=== PATIENT | female | born 1965 | race Caucasian/White ===

== ENCOUNTER → 2019-02-26 11:35 | Outpatient (CLI) | payer OTHER, SELFPAY ==
--- NOTE | ~2019-02-26 | XR_ITS ---
XR abdomen/kub 1V 02/26/2019 12:02 INDICATION: Abdominal pain TECHNIQUE: KUB COMPARISON: 07/27/2003 FINDINGS: Bowel gas pattern is normal. There is no evidence of free air, mass, organomegaly, ascites or obstruction. No abnormal calculi are seen. The bones appear intact. There are mild degenerative changes of the lumbar spine and hips. IMPRESSION: 1: No acute abdominal abnormality identified. Reviewed, dictated and finalized at location B. S ASSEMBLER
== END ==
PROVIDERS: PCP Family Medicine; Visit Provider Nurse Practitioner Family
DX: R10.9 Unspecified abdominal pain (principal)
CPT/HCPCS: 74018

== ENCOUNTER 2019-03-13 16:10 | Outpatient (CLI) | payer OTHER, SELFPAY ==
--- NOTE | ~2019-03-13 | CT_ITS ---
EXAMINATION: CT abdomen wo con DATE: 03/13/2019 16:42 INDICATION: Abdomen pain. TECHNIQUE: Computed tomography (CT) of the abdomen and pelvis was performed without intravenous contr ast. The dose-length product was 836.17 mGy-cm. Automated exposure control and iterative reconstructi on technique were employed. COMPARISON: CT dated 07/26/2013 FINDINGS: Lung bases unremarkable. Heart size normal. No significant pleural or pericardial effusion. No significant vascular abnormality. No lymphadenopathy. Fatty infiltration of the liver. There are gallstones. The spleen, pancreas, adrenal glands and kidne ys are unremarkable. Normal partially visualized appendix. Fat-containing umbilical hernia partially visualized. No free air or free fluid. Mild lumbar spondylosis. IMPRESSION: 1. Cholelithiasis. 2: Fatty infiltration of the liver. Reviewed, dictated and finalized at location A. PRINTER
[2019-03-13 17:33] LABS: Blood Urea Nitrogen 14 mg/dL (7-17); Calcium 9.9 mg/dL (8.4-10.2); Carbon Dioxide 28 mmol/L (22-30); Chloride 98 mmol/L (98-107); Estimated Glomerular Filt Rate > 60; Glucose 106 mg/dL (65-105); Potassium 3.9 mmol/L (3.4-5.0); Sodium 138 mmol/L (137-145)
== END 2019-03-13 16:11 | disposition home or self-care (01) ==
PROVIDERS: PCP Family Medicine; Visit Provider Nurse Practitioner Family
DX: K80.20 Calculus of gallbladder without cholecystitis without obstruction (principal); K76.0 Fatty (change of) liver, not elsewhere classified
CPT/HCPCS: 36415; 74150; 80048

== ENCOUNTER 2020-01-14 08:32 | Outpatient (CLI) | payer OTHER, SELFPAY ==
--- NOTE | ~2020-01-14 | MM_ITS ---
EXAMINATION: MM screening eddi BI w ssuan HISTORY: Screening mammogram TECHNIQUE: Craniocaudal and mediolateral oblique 3-D tomosynthesis images were obtained and synthetic 2-D images were generated. CAD analysis was submitted and interpreted. COMPARISON: 08/01/2015, 04/24/2011 bilateral digital screening mammogram examinations BREAST PARENCHYMAL COMPOSITION: There are scattered areas of fibroglandular density. FINDINGS: There is no evidence of suspicious mass, calcification, or architectural distortion to sugg est malignancy in either breast. There has been no suspicious interval change. IMPRESSION: 1. No mammographic evidence of malignancy. 2. Recommend routine screening mammography in one year. BI-RADS Category 1: Negative Reviewed, dictated and finalized at location A. CHDOWN THREAD LASTER
== END 2020-01-14 08:33 | disposition home or self-care (01) ==
PROVIDERS: PCP Family Medicine; Visit Provider Obstetrics & Gynecology
DX: Z12.31 Encounter for screening mammogram for malignant neoplasm of breast (principal)
CPT/HCPCS: 77063; 77067

== ENCOUNTER 2020-02-19 08:39 | Outpatient (CLI) | payer OTHER, SELFPAY ==
[2020-02-19 09:25] LABS: Anion Gap 9 mmol/L (8-16); Blood Urea Nitrogen 14 mg/dL (7-17); Calcium 9.3 mg/dL (8.4-10.2); Carbon Dioxide 30 mmol/L (22-30); Chloride 101 mmol/L (98-107); Cholesterol 239 mg/dL (0-200); Estimated Glomerular Filt Rate > 60; Glucose 114 mg/dL (65-105); HDL Direct 54 mg/dL; Potassium 4.2 mmol/L (3.4-5.0); Sodium 140 mmol/L (137-145); Triglycerides 100 mg/dL (<150)
[2020-02-19 09:39] LABS: LDL Cholesterol Direct 167 mg/dL
== END 2020-02-19 08:40 | disposition home or self-care (01) ==
PROVIDERS: PCP Family Medicine; Visit Provider Nurse Practitioner Family
DX: F32.9 Major depressive disorder, single episode, unspecified (principal)
CPT/HCPCS: 36415; 80048; 80061; 84443

== ENCOUNTER 2020-07-01 12:37 | Emergency (ER) | payer OTHER, SELFPAY ==
--- NOTE | ~2020-07-01 | XR_ITS ---
EXAMINATION: XR knee RT min 4V DATE: 07/01/2020 13:07 INDICATION: Right knee injury and pain. TECHNIQUE: 5 views of right knee were obtained. COMPARISON: None. FINDINGS: Bone alignment is normal. No fracture. There is moderate osteoarthritis of medial compartme nt and mild osteoarthritis of lateral and patellofemoral compartments. There is a small knee joint ef fusion with loose body. There is a loose body in a Markham's cyst. IMPRESSION: 1. Moderate right knee osteoarthritis. 2. Small right knee joint effusion with loose body. Reviewed, dictated and finalized at location A.
--- NOTE | 2020-07-01 12:43 | ED.LOWEXIN ---
HPI - Extremity Injury (Lower) General Chief Complaint: Extremity Injury, Lower Stated Complaint: right knee pain Time Seen by Provider: 07/01/20 12:43 Source: patient and RN notes reviewed Mode of arrival: ambulatory Limitations: no limitations History of Present Illness HPI Narrative: 54-year-old female presents to the [facility] with complaints of right knee pain and swelling. patient states that she has had intermittent pain and swelling for over a year. Patient reports that she had a with with twisting injury in March 2019. When she went to get looked at in April all appointments were canceled due to Covid. Comes in with increased pain and swelling to the medial aspect of right knee and lower right knee. Has tried OTC medications with little relief. Related Data Allergies Allergy/AdvReac Type Severity Reaction Status Date / Time No Known Allergies Allergy Unknown Verified 07/01/20 12:43 Review of Systems Review of Systems: All systems reviewed & are unremarkable except as noted in HPI and below Constitutional: Constitutional: Reports no additional constitutional complaints, Denies chills, Denies fatigue, Denies fever(s) and Denies weakness Cardiovascular: Cardiovascular: Reports no additional cardiovascular complaints Respiratory: Respiratory: Reports no additional respiratory complaints Musculoskeletal: Musculoskeletal: Reports as per HPI, Reports arthralgias (right knee) and Reports joint swelling (right knee) Integumentary/Breasts: Skin/Breast: Reports system reviewed and no additional complaints, except as docu Neurologic: Reports system reviewed and no additional complaints, except as documented, Denies dizziness, Denies focal weakness, Denies numbness and Denies weakness Psychiatric: Psychiatric: Reports no additional psychiatric complaints Endocrine: Endocrine: Reports no additional endocrine complaints [facility] Past Medical History Medical History Bone spur of foot Depression Osteoarthritis of spine Surgical History Surgical History H/O: hysterectomy Family History Family History Mother Diabetes mellitus Sibling Hypertension Diabetes mellitus Unknown Diabetes mellitus Family history of malignant neoplasm of ovary Social History Social History Smoking status: Never smoker Alcohol intake: current Substance use: never Gender identity (if verbalized by the patient): Female Comments At the time of my signature, I reviewed and agree with the nursing past medical, surgical, social, and family history. There is no relevant family history pertinent to the patient complaint. Exam Const: General: healthy appearing, no acute distress and alert Nutritional Appearance: obese Limitations: no limitations HENMT: Head: normal to inspection Eyes: Pupils: Equal, round and reactive pupils present Neck: Neck: normal visual inspection Chest: Chest palpation & inspection: normal inspection of the chest Resp: Effort & Inspection: normal respiratory effort and no use of accessory muscles Auscultation: clear to auscultation bilaterally Cardio: Rate: regular rate : General: Yes no CVA tenderness Skin: General skin exam: normal color Rashes: no rashes Neuro: General: patient oriented x3, moves all extremities and no meningeal signs Speech: normal speech Extrem: Right lower extremity: full ROM, normal capillary refill and knee Details: tenderness Location: of the medial joint line, swelling (Effusion noted to the medial aspect) and knee ligament exam normal; no abrasions, no lacerations and no ecchymosis; no edema Psych: Appearance: grossly normal and well kempt Mental Status: mental status grossly normal Affect: normal affect Attitude: cooperative Thought content: Yes Normal thought
[2020-07-01 13:00] VITALS: BP 144/82; PULSE 83; RESP 20; TEMP 36.4; O2SAT 98
== END 2020-07-01 13:36 | disposition home or self-care (01) ==
PROVIDERS: Emergency Provider Nurse Practitioner; PCP Family Medicine
DX: M25.461 Effusion, right knee (principal); M17.11 Unilateral primary osteoarthritis, right knee; F32.9 Major depressive disorder, single episode, unspecified; M47.9 Spondylosis, unspecified
CPT/HCPCS: 73564; 99213; G0463

== ENCOUNTER 2020-09-16 03:17 | Day surgery (SDC) | payer OTHER, SELFPAY ==
[2020-09-02 13:46] VITALS: BMI 19.5
--- NOTE | 2020-09-16 08:26 | WPDANESEPPF ---
Anes - Initial Pre Proc Eval Procedure: Operation Date: 09/16/20 10:00 Proposed Procedures p Colonoscopy - Barry Lozano MD Date/Time: 09/16/20 08:26 Surgeon: Barry Lozano MD Pre Op Diagnosis: positive cologuard Patient Data Age: 54 Gender: F Height: 1.68 m Weight: 55 kg Allergies Allergy/AdvReac Type Severity Reaction Status Date / Time No Known Allergies Allergy Unknown Verified 09/16/20 09:26 Home Medications Medication Instructions Recorded Confirmed Type oxybutynin chloride 5 mg tablet 5 mg PO BID #180 tablet 06/14/20 09/02/20 Rx lamotrigine 100 mg tablet 100 mg PO DAILY #90 tablet 06/16/20 09/02/20 Rx sertraline 100 mg tablet 100 mg PO DAILY #90 tablet 06/16/20 09/02/20 Rx Patient hx anesthesia problems: none Family hx anesthesia problems: none PMFSH Past Medical History Medical History (Updated 09/16/20 @ 08:27 by Saurav Reese MD) Bipolar 1 disorder Bone spur of foot Depression Morbid obesity Osteoarthritis of spine Surgical History Surgical History H/O: hysterectomy Family History Family History Mother Diabetes mellitus Sibling Hypertension Diabetes mellitus Unknown Diabetes mellitus Family history of malignant neoplasm of ovary Social History Social History Smoking status: Never smoker Alcohol intake: never Substance use: never Substance use type: does not use Living arrangements: with family Gender identity (if verbalized by the patient): Female Spiritual care concerns: No Anes - Eval Final PreProcedure Day of Procedure 09/16/20 08:26 Patient weight: morbidly obese Heart: regular rate and rhythm Lungs: clear to auscultation and normal air movement Airway: Mallampati scale class II Neurological: alert and oriented Last oral intake: >/= 8 hours ASA classification: III Emergent: no Anesthetic plan: proceed Anesthesia type and monitoring: general GIVS Informed Consent: The patient's anesthetic plan and its attendant risks and benefits were discussed with the patient/family/POA. Questions were solicited and answers provided to the satisfaction of the patient/family/POA.
[2020-09-16] MEDS: LACTATED RINGERS 1,000 ML 150 ML IV CONT (09:24)
[2020-09-16 09:27] VITALS: BP 179/85; PULSE 79; RESP 22; TEMP 36.2; O2SAT 98; BMI 43.2
--- NOTE | 2020-09-16 09:42 | PM.HPGS ---
History of Present Illness History of Present Illness Consent: Risks, benefits, and alternatives have been discussed and questions answered. Patient agrees to proceed with procedure. Chief complaint: positive cologuard Narrative: Deyanira Mckeon is a 54 year old female referred for colon cancer screening. She performed a cold guard test that was positive Review of Systems Review of Systems: All systems reviewed & are unremarkable except as noted in HPI and below PMFSH Past Medical History Medical History Bipolar 1 disorder Bone spur of foot Depression Morbid obesity Osteoarthritis of spine Surgical History Surgical History H/O: hysterectomy Family History Family History Mother Diabetes mellitus Sibling Hypertension Diabetes mellitus Unknown Diabetes mellitus Family history of malignant neoplasm of ovary Social History Social History Smoking status: Never smoker Alcohol intake: never Substance use: never Substance use type: does not use Living arrangements: with family Gender identity (if verbalized by the patient): Female Spiritual care concerns: No Meds Home Medications and Allergies Home Medications Medication Instructions Recorded Confirmed Type oxybutynin chloride 5 mg tablet 5 mg PO BID #180 tablet 06/14/20 09/02/20 Rx lamotrigine 100 mg tablet 100 mg PO DAILY #90 tablet 06/16/20 09/02/20 Rx sertraline 100 mg tablet 100 mg PO DAILY #90 tablet 06/16/20 09/02/20 Rx Allergies Allergy/AdvReac Type Severity Reaction Status Date / Time No Known Allergies Allergy Unknown Verified 09/16/20 09:26 Vital Signs Vital Signs - 24 hr 09/16/20 09:27 Temperature 36.2 C L Pulse Rate 79 Respiratory Rate 22 H Blood Pressure 179/85 H Pulse Oximetry 98 Exam Resp: Auscultation: clear to auscultation bilaterally Cardio: Rate: regular rate Rhythm: regular rhythm GI: GI Palp: Yes Soft to palpation and No Tenderness to palpation present (GI) Assessment and Plan Assessment and plan (1) Positive colorectal cancer screening using Cologuard test: Code(s): R19.5 - Other fecal abnormalities Status: Acute Assessment and Plan: Colonoscopy with possible biopsy or polypectomy or cautery or injection of substances.
[2020-09-16 10:37] VITALS: BP 109/65; PULSE 66; RESP 17; O2SAT 94
[2020-09-16 10:47] VITALS: BP 126/68; PULSE 62; RESP 15; O2SAT 96
[2020-09-16 10:57] VITALS: BP 130/70; PULSE 65; RESP 17; O2SAT 98
== END 2020-09-16 11:09 | disposition home or self-care (01) ==
PROVIDERS: PCP Family Medicine; Visit Provider Internal Medicine Gastroenterology
PROC: 0DJD8ZZ Inspection of Lower Intestinal Tract, Via Natural or Artificial Opening Endoscopic (ICD-10-PCS; CPT 45378; principal; 2020-09-16 10:00)
DX: R19.5 Other fecal abnormalities (principal); D12.5 Benign neoplasm of sigmoid colon; K62.1 Rectal polyp; K57.30 Diverticulosis of large intestine without perforation or abscess without bleeding; K64.8 Other hemorrhoids; E66.01 Morbid (severe) obesity due to excess calories; M47.9 Spondylosis, unspecified; F31.9 Bipolar disorder, unspecified; Z90.710 Acquired absence of both cervix and uterus
CPT/HCPCS: 45385; 88305; J2001; J2704; J7120

== ENCOUNTER 2021-08-09 10:06 | Outpatient (CLI) | payer OTHER, SELFPAY ==
[2021-08-09 20:32] LABS: Hematocrit 43.9 % (37.0-47.0); Hemoglobin 13.4 g/dL (12.0-15.0); Mean Corpuscular HGB Conc 30.5 g/dl (32-36); Mean Corpuscular Hemoglobin 28.9 pg (26-34); Mean Corpuscular Volume 94.8 fl (80-100); Mean Platelet Volume 10.7 fl (7.4-10.4); Platelet Count Result 266 k/mm3 (150-375); Red Blood Count 4.63 M/mm3 (4.2-5.4); Red Cell Distribution Width 14.4 % (11.5-14.5); White Blood Count 7.5 K/mm3 (4.5-10.0)
[2021-08-09 20:49] LABS: Alanine Aminotransferase 21 U/L (6-35); Albumin Level 4.8 g/dL (3.5-5.1); Alkaline Phosphatase 104 U/L (38-126); Anion Gap 9 mmol/L (8-16); Aspartate Amino Transferase 22 U/L (14-36); Bilirubin,Total 0.5 mg/dL (0.2-1.3); Blood Urea Nitrogen 15 mg/dL (7-17); Calcium 9.4 mg/dL (8.4-10.2); Carbon Dioxide 27 mmol/L (22-30); Chloride 104 mmol/L (98-107); Cholesterol 290 mg/dL (0-200); Estimated Glomerular Filt Rate > 60; Glucose 107 mg/dL (65-110); HDL Direct 54 mg/dL; Potassium 4.4 mmol/L (3.4-5.0); Sodium 140 mmol/L (137-145); Triglycerides 133 mg/dL (<150)
[2021-08-09 20:54] LABS: Hemoglobin A1C 5.9 % (<5.7)
[2021-08-09 21:01] LABS: LDL Cholesterol Direct 189 mg/dL
[2021-08-11 10:10] LABS: Amphetamines NEGATIVE ng/mL (<500); Barbiturates NEGATIVE ng/mL (<300); Benzodiazepines NEGATIVE ng/mL (<100); Cocaine Metabolite NEGATIVE ng/mL (<100); Marijuana Metabolite NEGATIVE ng/mL (<20); Methadone Metabolite NEGATIVE ng/mL (<100); Opiates NEGATIVE ng/mL (<100); Oxidant NEGATIVE mcg/mL (<200); pH 7.2 (4.5-9.0)
== END 2021-08-09 10:07 | disposition home or self-care (01) ==
LOC: ANHBWCLAB 10:07
PROVIDERS: PCP Family Medicine; Visit Provider Family Medicine
DX: Z00.00 Encounter for general adult medical examination without abnormal findings (principal); E66.01 Morbid (severe) obesity due to excess calories; F98.8 Other specified behavioral and emotional disorders with onset usually occurring in childhood and adolescence; M25.561 Pain in right knee
CPT/HCPCS: 36415; 80053; 80061; 80299; 83036; 84443; 85027

== ENCOUNTER 2021-12-26 08:05 | Outpatient (CLI) | payer OTHER, SELFPAY ==
[2021-12-26 19:43] LABS: Hemoglobin A1C 6.1 % (<5.7)
== END 2021-12-26 08:06 | disposition home or self-care (01) ==
LOC: ANHBWCLAB 08:06
PROVIDERS: PCP Family Medicine; Visit Provider Family Medicine
DX: R73.03 Prediabetes (principal)
CPT/HCPCS: 36415; 83036

== ENCOUNTER 2022-04-25 14:34 | Outpatient (CLI) | payer OTHER, SELFPAY ==
--- NOTE | ~2022-04-25 | MM_ITS ---
EXAMINATION: MM screening eddi BI w susan HISTORY: Screening mammogram TECHNIQUE: Craniocaudal and mediolateral oblique 3-D tomosynthesis images were obtained and synthetic 2-D images were generated. CAD analysis was submitted and interpreted. COMPARISON: 01/14/2020, 08/01/2015 bilateral screening mammogram examinations BREAST PARENCHYMAL COMPOSITION: There are scattered areas of fibroglandular density. FINDINGS: There is no evidence of suspicious mass, calcification, or architectural distortion to sugg est malignancy in either breast. There has been no suspicious interval change. IMPRESSION: 1. No mammographic evidence of malignancy. 2. Recommend routine screening mammography in one year. BI-RADS Category 1: Negative Reviewed, dictated and finalized at location A.
== END 2022-04-25 14:35 | disposition home or self-care (01) ==
LOC: ANHIMG 14:36
PROVIDERS: PCP Family Medicine; Visit Provider Family Medicine
DX: Z12.31 Encounter for screening mammogram for malignant neoplasm of breast (principal)
CPT/HCPCS: 77063; 77067

== ENCOUNTER 2022-08-20 08:39 | Outpatient (CLI) | payer OTHER, SELFPAY ==
[2022-08-20 18:37] LABS: Hematocrit 42.7 % (37.0-47.0); Mean Corpuscular HGB Conc 30.4 g/dl (32-36); Mean Corpuscular Hemoglobin 29.7 pg (26-34); Mean Corpuscular Volume 97.7 fl (80-100); Mean Platelet Volume 10.7 fl (7.4-10.4); Platelet Count Result 218 k/mm3 (150-375); Red Blood Count 4.37 M/mm3 (4.2-5.4); Red Cell Distribution Width 13.4 % (11.5-14.5); White Blood Count 5.3 K/mm3 (4.5-10.0)
[2022-08-20 19:21] LABS: Alanine Aminotransferase 22 U/L (6-35); Albumin Level 4.5 g/dL (3.5-5.1); Alkaline Phosphatase 70 U/L (38-126); Anion Gap 3 mmol/L (8-16); Aspartate Amino Transferase 53 U/L (14-36); Bilirubin,Total 0.6 mg/dL (0.2-1.3); Blood Urea Nitrogen 18 mg/dL (7-17); Calcium 9.7 mg/dL (8.4-10.2); Carbon Dioxide 32 mmol/L (22-30); Chloride 103 mmol/L (98-107); Cholesterol 268 mg/dL (0-200); Estimated Glomerular Filt Rate > 60; Glucose 84 mg/dL (65-110); HDL Direct 52 mg/dL; Potassium 4.5 mmol/L (3.4-5.0); Sodium 138 mmol/L (137-145); Triglycerides 86 mg/dL (<150)
[2022-08-20 19:32] LABS: LDL Cholesterol Direct 167 mg/dL
[2022-08-20 19:45] LABS: Hemoglobin A1C 5.7 % (<5.7)
== END 2022-08-20 08:40 | disposition home or self-care (01) ==
LOC: ANHBWCLAB 08:41
PROVIDERS: PCP Family Medicine; Visit Provider Family Medicine
DX: E66.01 Morbid (severe) obesity due to excess calories (principal); F32.9 Major depressive disorder, single episode, unspecified; F98.8 Other specified behavioral and emotional disorders with onset usually occurring in childhood and adolescence; G47.30 Sleep apnea, unspecified; K80.20 Calculus of gallbladder without cholecystitis without obstruction; M25.561 Pain in right knee; N32.81 Overactive bladder; R03.0 Elevated blood-pressure reading, without diagnosis of hypertension; R19.5 Other fecal abnormalities; R73.03 Prediabetes; R73.09 Other abnormal glucose; Z00.00 Encounter for general adult medical examination without abnormal findings; Z83.49 Family history of other endocrine, nutritional and metabolic diseases; I10 Essential (primary) hypertension
CPT/HCPCS: 36415; 80053; 80061; 83036; 85027

== ENCOUNTER 2022-11-28 07:56 | Outpatient (CLI) | payer OTHER, SELFPAY ==
--- NOTE | ~2022-11-28 | MR_ITS ---
EXAMINATION: MR brain/brain stem wo/w con DATE: 11/28/2022 09:38 INDICATION: Central retinal vein occlusion with macular degeneration. Right eye vision loss. TECHNIQUE: Magnetic resonance imaging (MRI) of the brain and brainstem was performed without and with 19 mL MultiHance intravenous contrast. COMPARISON: None. FINDINGS: There are scattered areas of nonspecific increased T2-weighted signal intensity in the cere bral white matter, which is within normal limits for the patient's age. There is no intracranial hemo rrhage, acute infarction, or abnormal intracranial mass lesion. The ventricles are normal in size. Th e paranasal sinuses are clear. The orbits are normal. The mastoid air cells are normal. IMPRESSION: 1. Normal aging brain. Reviewed, dictated and finalized at location E. IMPRESSION: 1. Normal aging brain.
--- NOTE | ~2022-11-28 | MR_ITS ---
EXAMINATION: MR orbits face neck wo/w con DATE: 11/28/2022 09:38 INDICATION: Right-sided visual loss. Central retinal vein occlusion with macular degeneration. TECHNIQUE: Magnetic resonance imaging (MRI) of the orbits was performed without with 19 mL MultiHance intravenous contrast. COMPARISON: None. FINDINGS: The ocular globes, optic nerves, optic chiasm, and extraocular muscles are normal. There is no abnormal mass. IMPRESSION: 1. Normal orbits. Reviewed, dictated and finalized at location E. IMPRESSION: 1. Normal orbits.
[2022-11-30 18:51] LABS: Anti-Thrombin III Antigen 107 % normal (80-120)
[2022-12-04 13:54] LABS: Factor V (Leiden) Mutation NEGATIVE
== END 2022-11-28 07:57 | disposition home or self-care (01) ==
LOC: ANHIMG 08:00
PROVIDERS: PCP Family Medicine
DX: H34.8110 Central retinal vein occlusion, right eye, with macular edema (principal)
CPT/HCPCS: 36415; 70543; 70553; 81241; 85301; 85303; 85306; 86146; A9577

== ENCOUNTER 2022-12-24 14:57 | Outpatient (CLI) | payer OTHER, SELFPAY ==
[2022-12-24 19:42] LABS: Basophils Percent Auto 0.6 % (0.2-1.2); Eosinophils Absolute Auto 0.1 K/mm3 (0-0.3); Eosinophils Percent Auto 1.4 % (0-4.4); Hematocrit 40.3 % (37.0-47.0); Hemoglobin 12.9 g/dL (12.0-15.0); Immature Granulocyte Absolute 0.01 K/mm3 (0.00-0.031); Immature Granulocyte Percent A 0.1 % (0-0.5); Lymphocytes Percent Auto 39.8 % (18.3-44.2); Mean Corpuscular Hemoglobin 29.9 pg (26-34); Mean Corpuscular Volume 93.5 fl (80-100); Mean Platelet Volume 10.7 fl (7.4-10.4); Monocytes Absolute Auto 0.4 K/mm3 (0.1-0.6); Monocytes Percent Auto 6.1 % (2.6-8.5); Neutrophils Absolute Auto 3.7 K/mm3 (1.3-6.7); Platelet Count Result 254 k/mm3 (150-375); Red Blood Count 4.31 M/mm3 (4.2-5.4); Red Cell Distribution Width 13.2 % (11.5-14.5)
[2022-12-24 19:43] LABS: CRP 0.6 mg/dL (<1.0)
[2022-12-24 20:21] LABS: Erythrocyte Sedimentation Rate 17 mm/hr (0-20)
== END 2022-12-24 14:58 | disposition home or self-care (01) ==
PROVIDERS: PCP Family Medicine
DX: H34.8112 Central retinal vein occlusion, right eye, stable (principal)
CPT/HCPCS: 36415; 85025; 85652; 86140

== ENCOUNTER 2023-03-25 07:34 | Outpatient (CLI) | payer OTHER, SELFPAY ==
[2023-03-25 19:29] LABS: Hepatitis B Surface Antigen Negative (Negative)
[2023-03-25 19:34] LABS: HAV RESULT Negative (Negative); Hepatitis B Core IgM Result Negative (Negative)
[2023-03-25 19:46] LABS: Hepatitis C Virus Antibody Negative (Negative)
[2023-03-25 21:20] LABS: Alanine Aminotransferase 22 U/L (6-35); Albumin Level 4.3 g/dL (3.5-5.1); Alkaline Phosphatase 65 U/L (38-126); Aspartate Amino Transferase 45 U/L (14-36); Bilirubin,Total 0.5 mg/dL (0.2-1.3)
[2023-03-25 22:07] LABS: Hemoglobin A1C 5.5 % (<5.7)
== END 2023-03-25 07:35 | disposition home or self-care (01) ==
LOC: ANHBWCLAB 07:35
PROVIDERS: PCP Family Medicine; Visit Provider Family Medicine
DX: R74.01 Elevation of levels of liver transaminase levels (principal); R73.03 Prediabetes; F98.8 Other specified behavioral and emotional disorders with onset usually occurring in childhood and adolescence; F32.9 Major depressive disorder, single episode, unspecified; N32.81 Overactive bladder
CPT/HCPCS: 36415; 80074; 80076; 83036

== ENCOUNTER 2023-04-03 07:54 | Outpatient (CLI) | payer OTHER, SELFPAY | END 2023-04-03 07:55 | disposition home or self-care (01) | LOC: ANHBWCAUD 07:54 | PROVIDERS: PCP Family Medicine; Visit Provider Family Medicine | DX: H93.19 Tinnitus, unspecified ear (principal); H90.42 Sensorineural hearing loss, unilateral, left ear, with unrestricted hearing on the contralateral side | CPT/HCPCS: 92557; 92567 ==

== ENCOUNTER 2023-07-25 08:25 | Outpatient (CLI) | payer OTHER, SELFPAY ==
--- NOTE | ~2023-07-25 | MM_ITS ---
EXAMINATION: MM screening eddi BI w susan HISTORY: Screening TECHNIQUE: Craniocaudal and mediolateral oblique 3-D tomosynthesis images were obtained and synthetic 2-D images were generated. CAD analysis was submitted and interpreted. COMPARISON: Comparison to multiple prior studies sequentially, with oldest reviewed study dated 07/31. BREAST PARENCHYMAL COMPOSITION: Not dense: There are scattered areas of fibroglandular density. FINDINGS: There is no evidence of suspicious mass, calcification, or architectural distortion to sugg est malignancy in either breast. There has been no suspicious interval change. IMPRESSION: 1. No mammographic evidence of malignancy. 2. Recommend routine screening mammography in one year. BI-RADS Category 1: Negative Reviewed, dictated and finalized at location B.
== END 2023-07-25 08:26 | disposition home or self-care (01) ==
PROVIDERS: PCP Nurse Practitioner Adult Health; Visit Provider Nurse Practitioner Adult Health
DX: Z12.31 Encounter for screening mammogram for malignant neoplasm of breast (principal)
CPT/HCPCS: 77063; 77067

== ENCOUNTER 2023-09-23 08:34 | Outpatient (CLI) | payer OTHER, SELFPAY ==
[2023-09-23 20:17] LABS: Hematocrit 45.1 % (37.0-47.0); Hemoglobin 14.1 g/dL (12.0-15.0); Mean Corpuscular HGB Conc 31.3 g/dl (32-36); Mean Corpuscular Hemoglobin 30.3 pg (26-34); Mean Corpuscular Volume 96.8 fl (80-100); Mean Platelet Volume 10.4 fl (7.4-10.4); Platelet Count Result 222 k/mm3 (150-375); Red Blood Count 4.66 M/mm3 (4.2-5.4); Red Cell Distribution Width 12.9 % (11.5-14.5)
[2023-09-23 20:21] LABS: Alanine Aminotransferase 18 U/L (6-35); Albumin Level 4.7 g/dL (3.5-5.1); Alkaline Phosphatase 74 U/L (38-126); Anion Gap 9 mmol/L (4-12); Aspartate Amino Transferase 46 U/L (14-36); Bilirubin,Total 0.5 mg/dL (0.2-1.3); Blood Urea Nitrogen 13 mg/dL (7-17); Calcium 9.8 mg/dL (8.4-10.2); Carbon Dioxide 33 mmol/L (22-30); Chloride 100 mmol/L (98-107); Cholesterol 259 mg/dL (0-200); Estimated Glomerular Filt Rate > 60; Glucose 91 mg/dL (65-110); HDL Direct 64 mg/dL; Potassium 4.4 mmol/L (3.4-5.0); Sodium 142 mmol/L (137-145); Triglycerides 66 mg/dL (<150)
[2023-09-23 20:32] LABS: LDL Cholesterol Direct 164 mg/dL
[2023-09-23 22:18] LABS: Hemoglobin A1C 5.7 % (<5.7)
== END 2023-09-23 08:35 | disposition home or self-care (01) ==
PROVIDERS: PCP Nurse Practitioner Adult Health; Visit Provider Nurse Practitioner Adult Health
DX: Z13.9 Encounter for screening, unspecified (principal); R73.03 Prediabetes
CPT/HCPCS: 36415; 80053; 80061; 83036; 84443; 85027

== ENCOUNTER 2023-12-23 07:57 | Emergency (ER) | payer OTHER, SELFPAY ==
--- NOTE | ~2023-12-23 | XR_ITS ---
EXAMINATION: XR foot RT min 3V DATE: 12/23/2023 08:49 INDICATION: Right foot pain TECHNIQUE: Dorsoplantar, two oblique and lateral views of the right foot were obtained. COMPARISON: None. FINDINGS: Bone alignment is normal. No fracture. Mild polyarticular osteoarthritis at the right ankle and major ity of the joints throughout the right foot. Large Achilles and plantar calcaneal spurs with some add itional enthesopathic calcification at the distal Achilles tendon. Additional small enthesophytes marcela ng the dorsal margin of the joints in the mid and hindfoot. IMPRESSION: 1. Mild polyarticular osteoarthritis scattered enthesophytes at the right foot. No acute osseous abno rmality. Reviewed, dictated and finalized at location B. RETE GRINDER OPERATOR IMPRESSION: 1. Mild polyarticular osteoarthritis scattered enthesophytes at the right foot. No acute osseous abnormality.
[2023-12-23 08:28] VITALS: BP 138/78; PULSE 69; RESP 20; TEMP 36.8; O2SAT 99
--- NOTE | 2023-12-23 08:37 | ED.EXTPRO ---
HPI - Extremity Problem General Chief complaint: Extremity Problem,Nontraumatic Stated complaint: poss stress fracture right foot Time Seen by Provider: 12/23/23 08:37 Source: patient Mode of arrival: ambulatory Limitations: no limitations History of Present Illness HPI Narrative: 58-year-old female presented for complaint of right foot pain for 2 days. pain is to the top of the foot from mid foot to the side. denies injury or overuse. She has been on her feet a lot for 3 days for a wedding. At onset, she says she stepped out of bed and felt pain shoot up her foot. Denies bruising or deformity. Wearing a walking boot, taking Tylenol and ibuprofen. Related Data Allergies Allergy/AdvReac Type Severity Reaction Status Date / Time No Known Allergies Allergy Unknown Verified 09/23/23 08:08 Review of Systems Review of Systems: CONSTITUTIONAL: Denies body aches, fever, chills CARDIOVASCULAR: Denies chest pain, palpitations, or edema. RESPIRATORY: Denies cough or dyspnea. GASTROINTESTINAL: Denies abdominal pain, nausea, vomiting, or diarrhea. SKIN: Denies rash, itching, or wounds. MUSCULOSKELETAL: Reports right foot pain NEUROLOGIC: Denies numbness, tingling, or weakness. All systems reviewed & are unremarkable except as noted in HPI and below PMFSH Past Medical History Medical History Bipolar 1 disorder Bone spur of foot Depression Morbid obesity Osteoarthritis of spine Surgical History Surgical History H/O: hysterectomy Family History Family History Mother Diabetes mellitus Sibling Hypertension Diabetes mellitus Unknown Diabetes mellitus Family history of malignant neoplasm of ovary Social History Social History Smoking status: Never smoker Alcohol intake: current Alcohol use details: Wine 1 or 2 times a month Substance use: never Substance use type: does not use Lack of Transportation: No Lack of Food: Never True Current Housing: I Have Housing Concerned About Future Housing: No Difficulty Paying Gas/Electric Bills: No Difficulty Paying for Meds: No Currently Unemployed: No Education: High School Diploma/GED Difficulty w/ Childcare or Family Care: No Living arrangements: with roommate(s) Occupation/Education: occupation Additional occupation/education comments: Patient Access Gender identity (if verbalized by the patient): Female Spiritual care concerns: No Agree to blood products: Yes Comments At time of signature, I have reviewed and agree with nursing past medical, surgical, social and family history unless otherwise noted. Please see nursing chart for further information. There is no relevant family history pertinent to the presenting complaint Exam Narrative: GENERAL: Well-appearing CHEST: Speaks in full sentences. No respiratory distress. HEART: Regular rate and rhythm. Normal and equal peripheral pulses. EXTREMITIES: Right foot has normal strength and sensation, normal range of motion. tender to the dorsal aspect of the 5th MTP joint. No swelling or ecchymosis, No open wounds, or obvious deformity; alignment normal, pulse palpable and equal bilaterally, skin warm, dry, pink. Capillary refill less than 3 seconds. SKIN: Warm, dry, no rash. NEURO: Alert and oriented x3. PSYCH: Normal mood and affect Course Course Emergency Course: Patient is aware of diagnosis, understands and agrees to treatment plan. Anticipatory guidance given. Patient agrees to follow-up as directed and is aware of reasons to seek care at the emergency department. Portions of this record may have been created with voice recognition software Level of Care: Express Care Visit Vital Signs Vital signs: Vital Signs Temperature 98.2 F 12/23/23 08:28 Pulse Rate 69 12/23/23 08:28 Respiratory Rate 20 12/23/23 08:28 Blood Pressure 138/78 12/23/23 08:28 Pulse Oximetry 99 12/23/23 08:28 Oxygen Delivery Room Air 12/23/23 08:28 Temperature 98.2 F 12/23/23 08:28 Pulse Rate 69 12/23/23 08:28 Respiratory Rate 20 12/23/23 08:28 Blood Pressure 138/78 12/23/23 08:28 Pulse Oximetry 99 12/23/23 08:28 Oxygen Delivery Room Air 12/23/23 08:28 Reviewed MDM - Extremity (Nontraumatic) MDM Narrative Medical decision making narrative: Discussed physical exam findings and x-ray. She will continue with the walking boot from home.. Advised supportive measures and signs/symptoms to go to the ER. Pt is appropriate for outpt treatment and f/u. Differential Diagnosis Differential diagnosis: Likely other (Plantar fasciitis, heel spur, foot strain/sprain, metatarsal fracture, metatarsalgia, kay's neuroma) Imaging Data Radiologist's impression: Patient: Deyanira Mckeon : 1965 MR#: [id number] Age: 58 Acct:[id number] Loc: [facility] ADM Date: 12/23/23Attending Dr: Ordering Physician: Ce Hawkins APRN Date of Service: 12/23/23 Procedure(s): XR foot RT min 3V Accession Number(s): [id number] cc: Ce Hawkins APRN; Liyah Mcgee APRN~ EXAMINATION: XR foot RT min 3V DATE: 12/23/2023 08:49 INDICATION: Right foot pain TECHNIQUE: Dorsoplantar, two oblique and lateral views of the right foot were obtained. COMPARISON: None. FINDINGS: Bone alignment is normal. No fracture. Mild polyarticular osteoarthritis at the right ankle and majority of the joints throughout the right foot. Large Achilles and plantar calcaneal spurs with some additional enthesopathic calcification at the distal Achilles tendon. Additional small enthesophytes along the dorsal margin of the joints in the mid and hindfoot. IMPRESSION: 1. Mild polyarticular osteoarthritis scattered enthesophytes at the right foot. No acute osseous abnormality. Discharge Plan Discharge Clinical Impression: Acute pain of right foot Patient Disposition: Home, Self-Care Condition: Stable Instructions: Foot Sprain (ED) Additional Instructions: Rest and elevate the right leg; bear weight as tolerated Apply ice 15-20 minute intervals several times a day Keep it wrapped with LUBA , and use the walking boot as needed Motrin 800mg every 8 hours, alternate with Tylenol 1000mg every 8 hours as needed Follow up with your primary care provider in 1 week Go to the ER for worsening symptoms or concerns Prescriptions: No Action lamotrigine 100 mg tablet 50 mg PO DAILY Qty: 90 3RF oxybutynin chloride 15 mg tablet extended release 24hr 15 mg PO DAILY Qty: 90 3RF sertraline 100 mg tablet 50 mg PO DAILY Qty: 90 3RF Follow-up/Referrals: Tyrel Cline MD [Physician] - Liyah Mcgee APRN [Primary Care Provider] -
== END 2023-12-23 09:31 | disposition home or self-care (01) ==
PROVIDERS: Emergency Provider Nurse Practitioner Family; PCP Nurse Practitioner Adult Health
DX: M79.671 Pain in right foot (principal)
CPT/HCPCS: 73630; 99213; G0463

== ENCOUNTER → 2023-12-28 08:53 | Outpatient (CLI) | payer OTHER, SELFPAY ==
--- NOTE | ~2023-12-28 | XR_ITS ---
EXAM: XR knee RT min 4V DATE: 12/28/2023 09:27 HISTORY: M25.569 - Pain in unspecified knee . COMPARISON: 07/01/2020. FINDINGS: Decreased mineralization. No fracture or dislocation. No lytic or blastic lesion. Moderate medial joint space narrowing. Moderate tricompartmental osteophytosis. Multiple loose bodies in the suprapatellar recess, posteriorly likely within a Markham's cyst, and anterior joint, measuring up to 1 .7 cm. No erosion or periosteal change. Small right knee joint effusion. IMPRESSION: Osteopenia. Moderate tricompartmental right knee osteoarthritis, with multiple loose intr a-articular bodies. Reviewed, dictated and finalized at location K. T SCHOOL TEACHER IMPRESSION: Osteopenia. Moderate tricompartmental right knee osteoarthritis, wi th multiple loose intra-articular bodies.
== END ==
PROVIDERS: PCP Nurse Practitioner Adult Health; Visit Provider Nurse Practitioner Adult Health
DX: M85.861 Other specified disorders of bone density and structure, right lower leg (principal); M17.11 Unilateral primary osteoarthritis, right knee; M23.41 Loose body in knee, right knee
CPT/HCPCS: 73564

== ENCOUNTER 2024-02-19 12:29 | Outpatient (CLI) | payer OTHER, SELFPAY ==
--- NOTE | ~2024-02-19 | CT_ITS ---
EXAMINATION: CT LE RT wo con DATE: 02/19/2024 13:43 INDICATION: Right knee osteoarthritis. Preop planning. TECHNIQUE: Computed tomography (CT) of the right lower limb was performed without intravenous contras t. Automated exposure control and iterative reconstruction technique were employed. The dose-length p roduct was 1931.30 mGy-cm. COMPARISON: Right knee radiographs 12/28/2023 FINDINGS: There is moderate right hip osteoarthritis. Right knee demonstrates severe osteoarthritis o f the medial compartment, mild osteoarthritis of the lateral compartment, and moderate osteoarthritis of the patellofemoral compartment. There is a small knee joint effusion with loose bodies. IMPRESSION: 1. Severe right knee osteoarthritis. 2. Small right knee joint effusion with loose bodies. 3. Moderate right hip osteoarthritis. Reviewed, dictated and finalized at location A. ICITY MANAGER
--- NOTE | 2024-02-19 12:43 | ECG_ITS ---
Test Date: 2024-02-19 12:53:07 Measurements Intervals [place] Rate: 68 P: 52 ND: 153 QRS: 27 QRSD: 88 T: 34 QT: 375 QTc: 401 Interpretive Statements SINUS RHYTHM MINIMAL ST DEPRESSION [0.025+ mV ST DEPRESSION] No previous ECG available for comparison Electronically Signed On 02-20-2024 16:27:20 FLAG SIGNALER by Chris Smiley M.D.
[2024-02-19 13:26] LABS: Hemoglobin 13.2 g/dL (12.0-15.0)
[2024-02-19 13:28] LABS: Albumin Level 4.3 g/dL (3.5-5.1); Estimated Glomerular Filt Rate > 60; Glucose 108 mg/dL (65-110)
[2024-02-19 21:16] LABS: Hemoglobin A1C 5.5 % (<5.7)
== END 2024-02-19 12:30 | disposition home or self-care (01) ==
PROVIDERS: PCP Nurse Practitioner Adult Health; Visit Provider Orthopaedic Surgery
DX: Z01.818 Encounter for other preprocedural examination (principal); R73.03 Prediabetes; M17.11 Unilateral primary osteoarthritis, right knee; M25.461 Effusion, right knee; M23.41 Loose body in knee, right knee; M16.11 Unilateral primary osteoarthritis, right hip
CPT/HCPCS: 36415; 73700; 82040; 82565; 82947; 83036; 85014; 85018; 93005

== ENCOUNTER 2024-02-25 07:56 | Outpatient (CLI) | payer OTHER, SELFPAY ==
--- NOTE | ~2024-02-25 | DEXA_ITS ---
Bone Density Report Name: AUGIE CAMEJO Age: 58 Sex: Female Ethnicity: White Date of : 1965 Indication: postmenopausal; screening for osteoporosis; hysterectomy; Referring Provider: GIRMA BONE Study: Bone densitometry was performed. Exam Date: February 25, 2024 Accession number: [id number] Bone Density: Region BMD T-score Z-score Classification AP Spine(L1-L4) 0.994 -0.5 1.0 Normal Femoral Neck (Left) 0.826 -0.2 1.1 Normal Total Hip (Left) 1.006 0.5 1.5 Normal Femoral Neck (Right) 0.778 -0.6 0.7 Normal Total Hip (Right) 0.915 -0.2 0.7 Normal Total Hip Mean 0.960 0.2 1.1 Normal World Health Organization criteria for BMD impression classify patients as: Normal (T-score at or above -1.0), Osteopenia (T-score between -1.0 and -2.5), or Osteoporosis (T-score at or below -2.5). 10-year Fracture Risk: FRAX not reported because: All T-scores for Spine Total, Hip Total, Femoral Neck at or above -1.0 Clinical Information Provided by Patient: Has used the following medications: Vitamin D, Calcium Has the following medical conditions: Hysterectomy Patient maximum height was 66 Menopause Age: 40 Does not regularly consume dairy products Drinks caffeinated beverages Onset of menses at age 12 Number of children 4 Impression: The patient has normal bone mass. Discussion: BONE DENSITY IS ABOVE THE MINIMUM DESIRABLE LEVEL AT ALL SKELETAL SITES TESTED. This patient?s bone mineral density is above the minimum desirable level (T-score -1.0 or better) at all sites measured. The patient should follow a healthful lifestyle (good nutrition with adequate calcium and vitamin D, and appropriate weight-bearing exercise). Follow-Up: Consider repeating this study in 5 years or sooner if there is some new clinical indication. Reported by: LANRE on 02/25/2024 8:24:00 AM. Reviewed, dictated and finalized at location [facility]
== END 2024-02-25 07:57 | disposition home or self-care (01) ==
LOC: ANHIMG 07:57
PROVIDERS: PCP Nurse Practitioner Adult Health; Visit Provider Nurse Practitioner Adult Health
DX: Z78.0 Asymptomatic menopausal state (principal); M85.80 Other specified disorders of bone density and structure, unspecified site
CPT/HCPCS: 77080

== ENCOUNTER 2024-04-22 13:40 | Outpatient (CLI) | payer OTHER, SELFPAY ==
[2024-04-22 14:45] LABS: Basophils Percent Auto 0.5 % (0.2-1.2); Eosinophils Absolute Auto 0.1 K/mm3 (0-0.3); Eosinophils Percent Auto 1.8 % (0-4.4); Hematocrit 37.8 % (37.0-47.0); Hemoglobin 12.6 g/dL (12.0-15.0); Immature Granulocyte Absolute 0.01 K/mm3 (0.00-0.031); Immature Granulocyte Percent A 0.2 % (0-0.5); Lymphocytes Absolute Auto 2.45 K/mm3 (0.9-3.2); Lymphocytes Percent Auto 43.1 % (18.3-44.2); Mean Corpuscular HGB Conc 33.3 g/dl (32-36); Mean Corpuscular Hemoglobin 30.4 pg (26-34); Mean Corpuscular Volume 91.3 fl (80-100); Mean Platelet Volume 9.9 fl (7.4-10.4); Monocytes Absolute Auto 0.4 K/mm3 (0.1-0.6); Monocytes Percent Auto 7.2 % (2.6-8.5); Neutrophils Absolute Auto 2.7 K/mm3 (1.3-6.7); Neutrophils Percent Auto 47.2 % (45.5-73.1); Platelet Count Result 203 k/mm3 (150-375); Red Blood Count 4.14 M/mm3 (4.2-5.4); Red Cell Distribution Width 12.9 % (11.5-14.5); White Blood Count 5.7 K/mm3 (4.5-10.0)
[2024-04-22 14:57] LABS: Albumin Level 4.6 g/dL (3.5-5.1); Estimated Glomerular Filt Rate > 60; Glucose 106 mg/dL (65-110)
[2024-04-22 15:21] LABS: Urine Cotinine NEGATIVE
[2024-04-22 15:56] LABS: MRSA (PCR) NOT DETECTED (NOT DETECTE)
== END 2024-04-22 13:41 | disposition home or self-care (01) ==
LOC: ANHSURGERY 13:48
PROVIDERS: PCP Nurse Practitioner Adult Health; Visit Provider Orthopaedic Surgery
DX: M17.11 Unilateral primary osteoarthritis, right knee (principal); Z01.818 Encounter for other preprocedural examination
CPT/HCPCS: 80307; 82040; 82565; 82947; 85025; 87641

== ENCOUNTER 2024-05-14 02:14 | Day surgery (SDC) | payer OTHER, SELFPAY ==
[2024-04-22 14:02] VITALS: BP 126/69; PULSE 67; RESP 16; TEMP 37.1; O2SAT 98; BMI 36.5
--- NOTE | 2024-04-22 14:16 | PC.NURSE ---
Report to the Outpatient Waiting Room, entrance under the green pavilion located off [facility], at time __0800am on date __05/14/24 . Planned Procedure Time: 1000am .? Time changes happen often and if your time is changed the preop area will call you the afternoon before. - You and your visitor will be asked to self-screen and do not enter if you have any COVID symptoms. Please call surgeon if you need to reschedule. - A mask is optional within the hospital at this time. Patients may have clear liquids (water, carbonated beverages, clear teas, apple juice) until 3 hours prior to surgery with a maximum of 20 ounces. - No food from midnight until time of surgery and no smoking, or chewing tobacco (or any form of nicotine). No chewing gum, candy or mints.( 0700am) Take only the following medications with a SIP of water on the morning of surgery: __Setraline, Lamintrogine DO NOT STOP ANY OF YOUR OTHER PRESCRIPTION MEDICATIONS PRIOR TO SURGERY EXCEPT THE FOLLOWING Hold all vitamins and supplements for [address] Beavers Date to take last dose_05/06/24 Please no make-up, nail spanish, hairspray, perfume, deodorant, or body powder the day of surgery.? No jewelry (including any body piercings) or valuables the day of surgery, leave them at home.? Please take a shower or bath the night before, or the morning of, surgery with an antibacterial soap.? Wear comfortable, loose fitting clothing.? Scrub per [place] - Jewelry must be removed prior to entering the operating room.? Rings and piercings that are not removed may be cut off. - The hospital will not accept responsibility for valuables.? - Please leave all valuables, including medications, at home the day of surgery. If you are going home after surgery, a licensed industrial truck driver must drive you home.? - NO public transportation without another adult if you receive anesthesia. - We recommend that an adult stay with you for 24 hours following discharge. - We also recommend that you do not drive, make important decision, drink alcoholic beverages, or take any drugs that were not prescribed by your health care provider for at least 24 hours after your discharge time. Follow any additional instructions given to you from your surgeon. Telephone instructions given to _Patient and asked if any additional questions and then verbalized understanding. Patient advised to call surgeon office or pre surgery nurse liaison [phone] if any additional questions.
--- NOTE | 2024-05-13 14:20 | P.PNAN_ITS ---
Anes - Eval Pre Procedure Procedure: Operation Date: 05/14/24 10:00 Proposed Procedures p Right Custom Total Knee Arthroplasty - Dante Beavers MD Date/Time: 05/13/24 14:20 Pre Op Diagnosis: Prim O A Right Knee Patient Data Age: 58 Gender: F Height: 1.65 m Weight: 99.5 kg Last Vital Signs Temp 98.7 F 04/22/24 14:02 Pulse 67 04/22/24 14:02 Resp 16 04/22/24 14:02 BP 126/69 04/22/24 14:02 Pulse Ox 98 04/22/24 14:02 O2 Del Method Room Air 04/22/24 14:02 Allergies Allergy/AdvReac Type Severity Reaction Status Date / Time No Known Allergies Allergy Unknown Verified 04/22/24 13:56 Home Medications ?Medication ?Instructions ?Recorded ?Confirmed ?Type lamotrigine 100 mg tablet 50 mg (1/2 x 100 mg) PO DAILY #90 09/23/23 04/22/24 Rx tabs oxybutynin chloride 15 mg 15 mg PO DAILY #90 tabs 09/23/23 04/22/24 Rx tablet,extended release 24 hr sertraline 100 mg tablet 50 mg (1/2 x 100 mg) PO DAILY #90 09/23/23 04/22/24 Rx tabs digestive enzym,[id number] 1 cap PO DAILY 04/22/24 04/22/24 History capsule valacyclovir 500 mg tablet 500 mg PO Q12H 04/22/24 04/22/24 History Patient hx anesthesia problems: none Family hx anesthesia problems: none Results Review: All pre-operative results and documents have been reviewed as part of the pre- operative evaluation. [facility] Past Medical History Medical History (Updated 05/13/24 @ 14:24 by Niranjan Hampton Jr., CRNA) Bilateral primary osteoarthritis of knee Obesity Prediabetes Sleep apnea Bipolar 1 disorder Bone spur of foot Osteoarthritis of spine Depression Surgical History Surgical History H/O: hysterectomy Family History Family History Mother Diabetes mellitus Sibling Hypertension Diabetes mellitus Unknown Diabetes mellitus Family history of malignant neoplasm of ovary Social History Social History Smoking status: Never smoker Alcohol intake: never Alcohol use details: Wine 1 or 2 times a month Substance use: never Substance use type: does not use Do You Feel Safe in your Home?: Yes Lack of Transportation: No Lack of Food: Never True Current Housing: I Have Housing Concerned About Future Housing: No Difficulty Paying Gas/Electric Bills: No Difficulty Paying for Meds: No Currently Unemployed: No Education: High School Diploma/GED Difficulty w/ Childcare or Family Care: No Living arrangements: alone Occupation/Education: occupation Additional occupation/education comments: Patient [employer] Gender identity (if verbalized by the patient): Female Spiritual care concerns: No Agree to blood products: Yes Comments VR 68 Exam Day of Procedure 05/13/24 14:20 Patient weight: obese
[2024-05-14] VITALS (16 sets, daily range): BP systolic 120–148; BP diastolic 55–80; PULSE 66–85; RESP 12–16; TEMP 36.1–36.5; O2SAT 93–99
--- NOTE | ~2024-05-14 | XR_ITS ---
EXAMINATION: [id number] DATE: 05/14/2024 12:29 INDICATION: Postoperative evaluation following right total knee arthroplasty. TECHNIQUE: Anteroposterior and lateral views of the right knee were obtained. COMPARISON: None. FINDINGS: Right total knee arthroplasty with patellar resurfacing appears well seated and in near anatomic alig nment. No fractures identified. Expected postoperative subcutaneous and intra-articular gas. IMPRESSION: 1. Right total knee arthroplasty, negative for postoperative purposes. Reviewed, dictated and finalized at location A.
--- OUTSIDE RECORDS SUMMARY | 2024-05-14 02:18 | XMS_ITS | Data Portability ---
Author Organization [place] [facility] [employer], Main Office Address [address] [place] [address] Care Team Providers Care Linen Checker Name Role Phone MARAL JERMAN Primary Care Provider JERMAN ALICIA Referring Provider [phone] Assessment Encounter Date Assessment Date Assessment LastModified by Organization Details LastModified Time 06/27/2022 06/27/2022 HPI: Patient returns. Last time we saw her was in October of last year. She had a cortisone injection right knee. Has relatively severe medial compartment osteoarthritis on the PA flexion view. She was doing well, up until about 10 days ago. She stepped on uneven sidewalk and twisted knee. Since that time she be having pain predominantly in the anterior aspect knee. She has been taking ibuprofen 600 mg 2 or 3 times a day. Patient been working on her weight loss since I saw her last October. She contributes to weight loss to not really having much symptoms in the knee until this recent episode Physical exam: 56-year-old female alert pleasant. She is 5 ft 5 and 227 lb today BMI is 37.8. She has a minimal effusion right knee. Moderate pain with patellofemoral grind. Mild moderate tenderness over the medial joint line, no lateral joint line tenderness. Normal stability in the knee. Range of motion is from 7-135 degrees. Hip range of motion is full without discomfort. she has normal quad strength. ChloraPrep was used on the skin 20 mg Kenalog and 3 cc of 0.5% ropivacaine was injected into the right knee. Risk infection discussed. Impression: 56-year-old female who has relatively severe medial compartment osteoarthritis of the right knee. She had a recent flare up due to a twisting injury approximately 10 days ago. Talked about different treatment options. She has taken diclofenac in the past and still has some of this at the house. I discussed with her that she can utilize this rather than the ibuprofen to see if it helps better, at this point she is content to stay with the ibuprofen. She has had cortisone injections in the past and wished to have another 1 today. She is thinking about having her knee replaced in the fall or winter of this year. She is going to continue with weight loss program. At this point she will call when she feels she needs additional treatment knee. 20 minutes was spent in treatment patient more than half this [id number] conversation Not available 06/27/2022 09:01:13 05/20/2023 05/20/2023 The patient has severe primary osteoarthritis of the right knee joint with [id number] changes in medial and patellofemoral compartments. We talked about treatment options today in detail she is considering total knee arthroplasty somewhere down the road possibly at the end of the year. Today she would like a shot of cortisone therefore under sterile conditions I injected the patient's right knee joint in the office with 4 cc of 0.25% bupivacaine and 20 mg of Kenalog. The patient tolerated the procedure well. We will see her back as needed when she is ready to do anything else we could inject her again in 3 months versus talk about setting up total knee arthroplasty. She voiced understanding agrees above plan she will call for any further problems difficulties or questions. [email or web address] Not available 05/20/2023 09:38:39 Plan of Treatment Reminders Order Date Submit Date Provider Last Modified By Organization Details Last Modified Time Details Appointments None recorded. Lab None recorded. Referral None recorded. Procedures injection/a spiration joint/bursa (PROC) - in office procedure, administere d by provider 2023 024 In-Office Order, Internal Use Only DO Not Attach Compendium DO Not Attach Compendium, Do Not Delete/merge, [id number] 09:26:25 injection/a spiration joint/bursa (PROC) - in office procedure, administere d by provider 2022 023 [email or web address] In-Office Order, Internal Use Only DO Not Attach Compendium DO Not Attach Compendium, Do Not Delete/merge, [id number] 08:53:37 Surgeries None recorded. Imaging XR, knee 2023 024 [email or web address] [facility] [place], [address], [place], [address], 4 11:47:31 Medication Orders Kenalog 10 mg/mL suspension for injection [address] [id number], [address], [place], [place], [id number], 4 10:29:31 bupivacaine (PF) 0.25 % (2.5 mg/mL) injection solution [address] [id number], [address], [place], [place], [id number], 4 10:29:31 Kenalog 10 mg/mL suspension for injection [address] [facility]68, [address], [place], [place], [id number], 3 10:30:52 ropivacaine (PF) 5 mg/mL (0.5 %) injection solution [address] [id number], [address], [place], [place], [phone], 3 10:30:52 Patient TargetsNo targets recorded. Patient InstructionsNo instructions recorded. Reason for Referral None Reported. Results Created Date Observation Date Name Description Value Unit Range Abnormal Flag Note LastModifiedBy Organization Detail LastModifiedTime 09/02/19 22 09/01/2021 XR, knee No observ ation record ed. [id number] [facility] [place] [address], [address], 04/12/2022 00:31:16 05/20/19 XR, knee No observ ation record ed. [email or web address] [facility] [place] [address], [place], [address], 05/20/2023 09:39:25 Result Notes None recorded. Problems Name Problem SNOMED Code Status Onset Date Resolution Date Notes Provider Name and Address Organization Details Recorded Time Bilateral osteoarthr itis of knees 7873474098214 07 Active 2021 Not Available [facility] 3 00:29:31 Osteoarthr itis of right knee joint 6865405699347 00 Active 2021 Not Available [facility] 3 00:29:32 Osteoarthr itis 380970402 Active 2021 Not Available [facility] 3 00:29:32 Pain of right knee joint 7724657656218 00 Active 2023 FLOR Pierson [address] [facility] [address], [place], [address] , [facility] 4 09:39:34 Problem Notes None recorded. Procedures Surgical History None recorded. Imaging Results Imaging Date Name Status LastModified by Organiz ation Details LastModified Time 09/01/2021 XR, knee completed [id number] [facility] [place] [address], [place], [address], 04/12/2022 00:31:16 05/20/2023 XR, knee completed [email or web address] [facility] [place] [address] [place], [address], 05/20/2023 09:39:25 Procedure Notes None recorded. Medical Equipment None Reported. Allergies No known drug allergies Medications Name Sig Start Date Stop Date Status Note LastModified by Organization Details LastModified Time methocarbam ol 500 mg tablet TAKE 1 TABLET BY MOUTH FOUR TIMES DAILY NEEDED 05/04 completed Not Available Not Available Not Available nystatin 100,000 unit/mL oral suspension SWISH AND SWALLOW 5 ML BY MOUTH FOUR TIMES DAILY FOR 14 DAYS active Not Available Not Available No t Available prednisone 10 mg tablet 09/01 completed Not Available Not Available Not Available oxybutynin chloride ER 15 mg tablet,exte nded release 24 hr TAKE 1 TABLET BY MOUTH DAILY active Not Available Not Available No t Available oxybutynin chloride ER 10 mg tablet,exte nded release 24 hr TAKE 1 TABLET BY MOUTH DAILY active Not Available Not Available No t Available Nystop 100,000 unit/gram topical powder APPLY TO THE AFFECTED AREA THREE TIMES DAILY 05/04 completed Not Available Not Available Not Available bupivacaine HCl 0.5 % (5 mg/mL) injection solution Take 20 mg by injection route. 09/01 completed Not Available Not Available Not Available sertraline 100 mg tablet TAKE 1 TABLET BY MOUTH DAILY active Not Available Not Available No t Available topiramate 25 mg tablet TAKE 1 TABLET BY MOUTH DAILY active Not Available Not Available No t Available acyclovir 400 mg tablet TAKE 1 TABLET BY MOUTH THREE TIMES DAILY FOR 10 DAYS active Not Available Not Available No t Available valacyclovi r 500 mg tablet TAKE 1 TABLET BY MOUTH THREE TIMES DAILY 05/04 completed Not Available Not Available Not Available ciprofloxac in 500 mg tablet TAKE 1 TABLET BY MOUTH TWICE DAILY active Not Available Not Available No t Available sulfamethox azole 800 mg-trimetho prim 160 mg tablet TAKE 1 TABLET BY MOUTH TWICE DAILY active Not Available Not Available No t Available prednisone 10 mg tablets in a dose pack Take 1 tab by mouth, 3 times a day for 3 daysTake 1 tab by mouth 2 times a day for 2 daysTake 1 tab by mouth once a day for 1 day 09/01 completed Not Available Not Available Not Available Kenalog 10 mg/mL suspension for injection in office 2023 active [facility]: 0003- 0494- 20 Not Available Not Available Not Available misoprostol 200 mcg tablet TAKE 1 TABLET BY MOUTH TWICE DAILY WITH DICLOFENA C 06/27 completed Not Available Not Available Not Available diclofenac sodium 75 mg tablet,delmis yed release TAKE 1 TABLET BY MOUTH TWICE DAILY WITH FOOD 06/27 completed Not Available Not Available Not Available oxybutynin chloride 5 mg tablet TAKE 1 TABLET BY MOUTH TWICE DAILY FOR OVERACTIV E BLADDER 10/13 completed Not Available Not Available Not Available lamotrigine 100 mg tablet TAKE 1 TABLET BY MOUTH DAILY active Not Available Not Available No t Available Adderall XR 15 mg capsule,ext ended release TAKE 1 CAPLET BY MOUTH DAILY active Not Available Not Available No t Available bupivacaine (PF) 0.25 % (2.5 mg/mL) injection solution in office 2023 active NDC:5 5150- 168-3 0 Not Available Not Available Not Available nitrofurant oin monohydrate /macrocryst als 100 mg capsule active Not Available Not Available Not Available lidocaine (PF) 5 mg/mL (0.5 %) injection solution Take 30 mg by injection route. 09/01 completed Not Available Not Available Not Available diclofenac 1 % topical gel 05/04 completed Not Available Not Available Not Available ropivacaine (PF) 5 mg/mL (0.5 %) injection solution in office 2022 active Not Available Not Available Not Avai lable Mounjaro 2.5 mg/0.5 mL subcutaneou s pen injector active Not Available Not Available Not Available Vitals Date Recorded Body mass index (BMI) Body height Body weight Provider Name and Address Organization Details Last Updated DateTime 06/15/2021 42 kg/m2 167.64 cm 217975.94 g Not Available [facility] 04/12/2022 00:29:07 Date Recorded Body mass index (BMI) Body height Body weight Provider Name and Address Organization Details Last Updated DateTime 09/01/2021 43.4 kg/m2 165.1 cm 052056.61 g Not Available [facility] 04/12/2022 00:29:07 Date Recorded Body height Provider Name an d Address Organization Details Last Updated DateTime 10/13/2021 165.1 cm Not Available [facility] 00:29:07 Date Recorded Body height Body mass index (BMI) Body weight Provider Name and Address Organization Details Last Updated DateTime 06/27/2022 165.1 cm 37.8 kg/m2 305046.47 g BIJAN Perez - [facility] 06/27/2022 08:47:29 Date Recorded Body height Body mass index (BMI) Body weight Provider Name and Address Organization Details Last Updated DateTime 05/20/2023 167.64 cm 32.3 kg/m2 12144.47 g BIJAN Perez [place] [facility] 05/20/2023 09:08:29 Social History Question Answer Notes LastModified by Organizat ion Details LastModified Time Tobacco Smoking Status Never Smoker Not Available [facility] 04/12/2022 00:27:21 What Is Your Level Of Alcohol Consumption? Occasional [id number] Information not available 04/12/2022 Sex: Unknown Functional Status None recorded. Mental Status None recorded. Family History Relationship Description Onset Age of this Age Resolved Age Notes LastModified by Organization Details LastModified Time Mother Hypertensive disorder [id number] Not available 04/12/2022 00:27:32 Mother Diabetes mellitus [id number] Not available 04/12/2022 00:27:32 Brother Diabetes mellitus [id number] Not available 04/12/2022 00:27:32 Mother Family history of malignant neoplasm [email or web address] Not available 2022 08:44:03 Sister Family history of malignant neoplasm [email or web address] Not available 2022 08:44:03 Medical History Condition Response URINARY/BLADDER/KIDNEY PROBLEMS Y Gynecological HistoryNo gynecological history recorded. Obstetrics History GPAL:G 0 P 0 0 0 0 Past Encounters Encounter ID Performer Location Encounter Start Date Encounter Closed Date Diagnosis/Indication Diagnosis SNOMED-CT Code Diagnosis ICD10 Code Diagnosis Note [id number] [facility] [place] [address] [place] [address] 05/04/2021 00:00:00 05/04/2021 15:38:53 [id number] [facility] [place] [address] [place] [address] 06/15/2021 00:00:00 06/15/2021 11:14:56 [id number] [facility] [place] [address] [place] [address] 09/01/2021 00:00:00 10/10/2021 19:02:36 [id number] [facility] [place] [address] [place] [address] 10/13/2021 00:00:00 10/13/2021 09:28:22 [id number] FLOR Mora [facility] [place] [address] [place] [address] 06/27/2022 08:28:56 06/27/2022 09:10:52 Osteoarthritis of right knee joint 8841033971 96062 M17.11 [id number] FLOR Pierson [facility] [place] [address] [place] [address] 05/20/2023 09:06:13 05/20/2023 11:47:31 Osteoarthritis of right knee joint 7258372547 06115 M17.11 Pain of ri ght knee joint 7542129103 77424 M25.561 Health Concerns Section Related Observation LastModified by Organization Detai ls LastModified Time None Recorded Concern Status LastModified by Organization Details LastModified Time None Recorded Advance Directives Directive None Recorded Payers Encounter Date Sequence Insurance Name Policy Number Policy Barrientos Covered Member ID Barrientos Member ID Guarantor Name 06/27/2022 1 [facility] [id number] Deyanira Mckeon [id number] Deyanira Mckeon 05/20/2023 1 R [id number] Deyanira Mckeon [id number] Deyanira Mckeon Notes Date Note Type Note Provider Name and Address Organization Details Recorded Time 05/20/2023 text/html Patient returns complaining of right knee pain. It has been quite awhile since she has had knee x-rays over 2 years we will get new ones today to check the progression of her osteoarthritis she knows she has moderately severe primary osteoarthritis of the right knee joint she is considering total knee arthroplasty somewhere down the road in the meantime she had like a shot of cortisone today denies any new trauma or injury no new symptoms or complaints no erythema effusion or signs of infection. States she has aching pain in the anterior and medial compartments mostly she has been coming in every now and then for cortisone injections it has been almost a year since her last injection. She has had no new trauma or injury walks with a limp states she has good motion strength and stability but is noting that she is starting to get some deformity with varus type deformity. She has been working on weight loss in anticipation of total knee arthroplasty she comes in today requesting a repeat cortisone injection right knee.Her previous past medical history was reviewed she states there has been no significant change. FLOR Pierson [address] [facility], [facility] [address], [place], [address], [facility] 05/20/2023 09:40:13 OBGyn Episode No OBEpisode recorded.
--- NOTE | 2024-05-14 07:25 | WPDHPUPDATE1 ---
History and Physical Update Update Date/Time: 05/14/24 07:25 History and Physical has been reviewed, including an updated exam of the patient. There are NO changes in the patient's condition. Risks, benefits, and alternatives have been discussed and questions answered. Patient agrees to proceed with procedure.
--- NOTE | 2024-05-14 08:11 | WPDANESEPPF ---
Anes - Initial Pre Proc Eval Procedure: Operation Date: 05/14/24 10:00 Proposed Procedures p Right Custom Total Knee Arthroplasty - Dante Beavers MD Date/Time: 05/14/24 08:11 Surgeon: Dante Beavers MD Pre Op Diagnosis: Prim O A Right Knee Patient Data Age: 58 Gender: F Height: 1.65 m Weight: 101.1 kg Last Vital Signs Temp 36.2 C L 05/14/24 07:56 Pulse 66 05/14/24 07:56 Resp 16 05/14/24 07:56 BP 148/80 H 05/14/24 07:56 Pulse Ox 96 05/14/24 07:56 O2 Del Method Room Air 05/14/24 07:56 Allergies Allergy/AdvReac Type Severity Reaction Status Date / Time No Known Allergies Allergy Unknown Verified 04/22/24 13:56 Home Medications ?Medication ?Instructions ?Recorded ?Confirmed ?Type lamotrigine 100 mg tablet 50 mg (1/2 x 100 mg) PO DAILY #90 09/23/23 04/22/24 Rx tabs oxybutynin chloride 15 mg 15 mg PO DAILY #90 tabs 09/23/23 04/22/24 Rx tablet,extended release 24 hr sertraline 100 mg tablet 50 mg (1/2 x 100 mg) PO DAILY #90 09/23/23 04/22/24 Rx tabs digestive enzym,plant-[id number] 1 cap PO DAILY 04/22/24 04/22/24 History capsule valacyclovir 500 mg tablet 500 mg PO Q12H 04/22/24 04/22/24 History aspirin 81 mg tablet,delayed 81 mg PO BID 14 days #28 tabs 05/14/24 Rx release meloxicam 15 mg tablet 15 mg PO DAILY #30 tabs 05/14/24 Rx oxycodone-acetaminophen 5 mg-325 1 - 2 tablet PO Q4-6H PRN pain 7 05/14/24 Rx mg tablet days #30 tabs prednisone 5 mg tablet 5 mg PO DAILY 3 weeks #21 tabs 05/14/24 Rx Patient hx anesthesia problems: none Family hx anesthesia problems: none Results Review: All pre-operative results and documents have been reviewed as part of the pre-operative evaluation. [facility] Past Medical History Medical History (Updated 05/14/24 @ 09:07 by FLOR Sanchez) Bilateral primary osteoarthritis of knee Obesity Prediabetes Sleep apnea Bipolar 1 disorder Bone spur of foot Osteoarthritis of spine Depression Surgical History Surgical History (Updated 05/14/24 @ 09:07 by FLOR Sanchez) H/O: hysterectomy Family History Family History Mother Diabetes mellitus Sibling Hypertension Diabetes mellitus Unknown Diabetes mellitus Family history of malignant neoplasm of ovary Social History Social History Smoking status: Never smoker Alcohol intake: current Alcohol use details: Wine 1 or 2 times a month Substance use: never Substance use type: does not use Do You Feel Safe in your Home?: Yes Lack of Transportation: No Lack of Food: Never True Current Housing: I Have Housing Concerned About Future Housing: No Difficulty Paying Gas/Electric Bills: No Difficulty Paying for Meds: No Currently Unemployed: No Education: High School Diploma/GED Difficulty w/ Childcare or Family Care: No Living arrangements: with roommate(s) Occupation/Education: occupation Additional occupation/education comments: Patient Access Gender identity (if verbalized by the patient): Female Spiritual care concerns: No Agree to blood products: Yes Anes - Eval Final PreProcedure Day of Procedure 05/14/24 08:11 Patient weight: obese Heart: regular rate and rhythm Lungs: clear to auscultation Airway: Mallampati scale class II Neurological: alert and oriented Last oral intake: >/= 8 hours ASA classification: III Emergent: no Anesthetic plan: proceed Anesthesia type and monitoring: general LMA and standard monitoring Results Review: All pre-operative results and documents have been reviewed as part of the pre-operative evaluation. Informed Consent: The patient's anesthetic plan and its attendant risks and benefits were discussed with the patient/family/POA. Questions were solicited and answers provided to the satisfaction of the patient/family/POA.
[2024-05-14] MEDS: ACETAMINOPHEN 500 MG TABLET 1000 MG PO (08:15)
[2024-05-14] MEDS: LACTATED RINGERS 1,000 ML 30 ML IV CONT ×2 (08:20→12:40)
[2024-05-14] MEDS: TRANEXAMIC ACID 1,000MG/ISO100 1,000 MG/100 ML BAG 200 MG IVPB ×2 (08:20→11:56)
[2024-05-14] MEDS: ceFAZolin 2 GM/D5W 50 ML 2 GM/50 ML BAG IVPB ×2 (10:15→16:56)
[2024-05-14] MEDS: SODIUM CHLORIDE 0.9% IV 37.7 ML, MORPHINE SULFATE INJ (*CRX) 2 MG, ROPivacaine HCL 1% 2... INFILTRATE (11:02)
[2024-05-14] MEDS: fentaNYL CITRATE INJ (*CRX) 100 MCG/2 ML VIAL 25 MCG IV PUSH ×6 (12:39→13:55)
--- NOTE | 2024-05-14 12:57 | W.PM.PROC2 ---
Procedure Note - Detailed Date of Procedure 05/14/24 Pre-op Diagnosis Right knee degenerative arthritis. Post-op Diagnosis Same Procedure Performed Custom total knee arthroplasty, right Surgeon Dante Beavers MD [employer] Diana Aleman PA-C Anesthesia General Description of Procedure Preoperative antibiotics were given. The limb was prepped and draped in the usual sterile fashion with a well-padded tourniquet high on the thigh. The limb was exsanguinated and the tourniquet inflated to 300 mmHg. A longitudinal incision was created just medial to the patella. A trivector approach to the knee was performed. Arthrotomy was taken down through the joint capsule. No significant releases were initially taken. The femur was exposed and the F1 jig was applied. The coring tool was used to remove the cartilage for the F2 jig to sit flush with the bone. The jig was pinned and the distal cut carefully taken. Caliper measurements confirmed appropriate bony resections according to the preoperative templated plan. The F4 cutting jig for the femur was applied, at the standard rotation. The AP and anterior chamfer cuts were taken. The F5 jig was applied and the posterior chamfer cuts were taken. The tibia was prepared using the T1 jig, after removing cartilage for the jig contact points. Proper alignment was checked with the alignment jordin. The tibia was cut using the T1u guide. Gap balancing was performed. Gap measurements were taken and the knee was trialed. Excellent alignment and soft tissue balancing was confirmed. The posterior cruciate ligament was recessed along the proximal tibia. The patella was cut for resurfacing. Three lug holes were drilled. Meniscal remnants were removed. The trial components were assembled. Excellent range of motion and proper soft tissue balancing were confirmed throughout the full range of motion. Patellar tracking was excellent. The knee was copiously irrigated periodically throughout the procedure. The real implants were cemented into position. Excess cement was carefully removed. The wound was closed in layers with interrupted #1 Vicryl suture, 2-0 strata fix suture, 0 strata fix suture, 2-0 strata fix suture. Steri-Strips placed on the skin with the knee flexed. Sterile bulky dressing applied. The patient was brought to the recovery room in stable condition. There were no complications. Physician rehab care assistant, Diana Aleman PA-C, required for surgery; including patient positioning, draping, tissue retraction, maintaining instrument position, cement removal, wound closure, and dressing placement. Implants Conformis Custom total knee arthroplasty. Cemented. Cruciate retaining. 7A insert. 35 mm oval patella. Estimated Blood Loss 20 Drains No Complications No immediate complications Condition Stable Disposition PACU [facility] Billing Surgery - Charge Forward: Surgery Billing
--- NOTE | 2024-05-14 13:38 | SUR.PHASEI ---
RN tried to call report to floor RN but she has to call back.
--- NOTE | 2024-05-14 14:54 | ADMGEN ---
This patient, Deyanira Mckeon, was admitted to 3 [facility] Surg Room 310-01. Patient/family oriented to hospital policies and general routines including ID bracelet, bed and alarms, visiting hours, pain management, procedures, bathroom and other care routines, personal items, smoking policy, room service/diet, and visiting hours. Information on how to activate the Rapid Response Team has been discussed. Patient/Family are encouraged to report perceived risks to care and to ask questions if they do not understand what they are told or what they should do.
[2024-05-14] MEDS: MELOXICAM 7.5 MG TABLET PO (16:57)
[2024-05-14] MEDS: SENNA/DOCUSATE SODIUM TABLET 2 TAB PO (16:57)
[2024-05-14] MEDS: ACETAMINOPHEN 325 MG TABLET 650 MG PO ×2 (16:57→23:39)
[2024-05-14] MEDS: predniSONE 5 MG TABLET PO (16:57)
[2024-05-14] MEDS: valACYclovir HCL 500 MG TABLET PO (20:34)
[2024-05-14] MEDS: ASPIRIN 81 MG ENTERIC TABLET PO (20:34)
[2024-05-14] MEDS: FAMOTIDINE 20 MG TABLET PO (20:35)
[2024-05-15] MEDS: ceFAZolin 2 GM/D5W 50 ML 2 GM/50 ML BAG IVPB ×2 (02:10→09:02)
[2024-05-15] MEDS: oxyCODONE/ACETAMINOPHEN (*CRX) 5-325 MG TABLET 1 TABLET PO ×2 (02:12→09:16)
[2024-05-15 03:35] VITALS: BP 106/49; PULSE 63; RESP 16; TEMP 36.4; O2SAT 96
[2024-05-15] MEDS: ACETAMINOPHEN 325 MG TABLET 650 MG PO (05:56)
[2024-05-15 05:58] LABS: Basophils Percent Auto 0.1 % (0.2-1.2); Eosinophils Percent Auto 0.1 % (0-4.4); Hematocrit 35.5 % (37.0-47.0); Hemoglobin 11.3 g/dL (12.0-15.0); Immature Granulocyte Absolute 0.05 K/mm3 (0.00-0.031); Immature Granulocyte Percent A 0.5 % (0-0.5); Lymphocytes Absolute Auto 1.58 K/mm3 (0.9-3.2); Lymphocytes Percent Auto 14.8 % (18.3-44.2); Mean Corpuscular HGB Conc 31.8 g/dl (32-36); Mean Corpuscular Hemoglobin 30.2 pg (26-34); Mean Corpuscular Volume 94.9 fl (80-100); Monocytes Absolute Auto 0.7 K/mm3 (0.1-0.6); Monocytes Percent Auto 6.7 % (2.6-8.5); Neutrophils Absolute Auto 8.3 K/mm3 (1.3-6.7); Neutrophils Percent Auto 77.8 % (45.5-73.1); Platelet Count Result 208 k/mm3 (150-375); Red Blood Count 3.74 M/mm3 (4.2-5.4); White Blood Count 10.7 K/mm3 (4.5-10.0)
[2024-05-15] MEDS: CYCLOBENZAPRINE HCL 10 MG TABLET PO (06:03)
[2024-05-15 06:27] LABS: Anion Gap 8 mmol/L (4-12); Blood Urea Nitrogen 18 mg/dL (7-17); Calcium 8.8 mg/dL (8.4-10.2); Carbon Dioxide 28 mmol/L (22-30); Chloride 102 mmol/L (98-107); Estimated CRCL calculation 77 ml/min; Estimated Glomerular Filt Rate > 60; Glucose 151 mg/dL (65-110); Potassium 4.2 mmol/L (3.4-5.0); Sodium 138 mmol/L (137-145)
[2024-05-15 08:00] VITALS: BP 121/60; PULSE 63; RESP 18; TEMP 36.3; O2SAT 99
[2024-05-15] MEDS: FAMOTIDINE 20 MG TABLET PO (09:01)
[2024-05-15] MEDS: oxyBUTYnin CHLORIDE XL 5 MG TAB.ER.24 15 MG PO (09:01)
[2024-05-15] MEDS: ASPIRIN 81 MG ENTERIC TABLET PO (09:01)
[2024-05-15] MEDS: SENNA/DOCUSATE SODIUM TABLET 2 TAB PO (09:01)
[2024-05-15] MEDS: SERTRALINE HCL 50 MG TABLET PO (09:01)
[2024-05-15] MEDS: lamoTRIgine 50 MG TABLET PO (09:02)
[2024-05-15] MEDS: MELOXICAM 7.5 MG TABLET PO (09:02)
[2024-05-15] MEDS: polyethylene glycoL 3350 17 GM POWD.PACK PO (09:02)
== END 2024-05-15 10:15 | disposition home or self-care (01) ==
LOC: ANHSURGERY 09:06 → ANH3MEDSUR 14:26
PROVIDERS: Physician Assistant Surgical; PCP Nurse Practitioner Adult Health; Visit Provider Orthopaedic Surgery
PROC: (CPT 27447; principal; 2024-05-14 10:00)
DX: M17.11 Unilateral primary osteoarthritis, right knee (principal); R73.03 Prediabetes; G47.30 Sleep apnea, unspecified; F31.9 Bipolar disorder, unspecified; M47.9 Spondylosis, unspecified; E66.9 Obesity, unspecified; Z68.37 Body mass index [BMI] 37.0-37.9, adult; Z79.82 Long term (current) use of aspirin; Z79.891 Long term (current) use of opiate analgesic; Z79.52 Long term (current) use of systemic steroids; Z98.890 Other specified postprocedural states; Z80.41 Family history of malignant neoplasm of ovary
CPT/HCPCS: 27447; 36415; 73560; 80048; 85025; 86850; 86900; 86901; 97110; 97161; 97165; A9270; C1713; C1776; J0171; J0690; J1100; J1171; J1885; J2003; J2250; J2270; J2405; J2704; J2795; J3010; J7120; J7512

== ENCOUNTER 2024-06-30 15:41 | Inpatient (IN) | payer OTHER, SELFPAY ==
[2024-06-30] VITALS (13 sets, daily range): BP systolic 117–141; BP diastolic 53–88; PULSE 71–86; RESP 12–20; TEMP 36.2–37; O2SAT 90–98; BMI 38.5
--- NOTE | ~2024-06-30 | XR_ITS ---
EXAMINATION: XR chest 2V Exam Date/Time: 06/30/2024 20:08 CDT HISTORY: hypoxia; pt just had appendectomy this evening Comparison: 03/27/2017, report only. RESULT: Lines, tubes, and devices: None. Lungs and pleura: Low volumes. Streaky bibasilar opacities. Minimal left lateral costophrenic angle blunting. No lobar consolidation, large pleural effusion, or pneumothorax. Cardiomediastinal silhouette: Unremarkable. Other: No acute osseous or upper abdominal finding. IMPRESSION: Low volumes with crowding. Streaky bibasilar opacities likely represent atelectasis. Possible trace l eft pleural effusion. Reviewed, dictated and finalized at location K. IMPRESSION: Low volumes with crowding. Streaky bibasilar opacities likely represent atelect asis. Possible trace left pleural effusion.
--- NOTE | 2024-06-30 15:54 | ED_ITS ---
HPI - Abdominal Pain General Chief Complaint: Abdominal Pain <JILLIAN Ramirez Last Filed: 06/30/24 16:25> Stated Complaint: abd pain <JILLIAN Ramirez Last Filed: 06/30/24 16:25> Time Seen by Provider: 06/30/24 15:48 <JILLIAN Ramirez Last Filed: 06/30/24 16:25> Source: patient <JILLIAN Ramirez Last Filed: 06/30/24 16:25> Mode of arrival: ambulatory <JILLIAN Ramirez Last Filed: 06/30/24 16:25> Limitations: no limitations <JILLIAN Ramirez Last Filed: 06/30/24 16:25> History of Present Illness HPI narrative: Patient is a 58-year-old female who presents the ED with concern for acute appendicitis. Patient reports she was seen at [facility] on Saturday and diagnosed with acute appendicitis. She was prescribed Augmentin and discharged home to follow-up with surgery outpatient. She followed up with Dr. Atwood today and was referred to the ED to proceed with surgery today. Patient reports pain has been persistent. Denies nausea/vomiting since Saturday. Denies fevers. <JILLIAN Ramirez Last Filed: 06/30/24 16:25> Related Data Home Medications: Home Medications ?Medication ?Instructions ?Recorded ?Confirmed ?Last Taken ?Type digestive enzym,plant-ivatuv48 1 cap PO DAILY 04/22/24 06/05/24 Unknown History capsule valacyclovir 500 mg tablet 500 mg PO Q12H 04/22/24 06/05/24 Unknown History vibegron 75 mg tablet (Gemtesa) 75 mg PO DAILY 05/14/24 06/05/24 Unknown History <JILLIAN Ramirez Last Filed: 06/30/24 16:25> Allergies/Adverse Reactions: Allergies Allergy/AdvReac Type Severity Reaction Status Date / Time No Known Allergies Allergy Unknown Verified 06/30/24 15:01 <JILLIAN Ramirez Last Filed: 06/30/24 16:25> Review of Systems Review of Systems: All systems reviewed & are unremarkable except as noted in HPI. <Sully Redd PA-C - Last Filed: 06/30/24 16:25> All systems reviewed & are unremarkable except as noted in HPI and below <Sully Redd PA-C - Last Filed: 06/30/24 16:25> [facility] Past Medical History Medical History: Medical History Bilateral primary osteoarthritis of knee Obesity Prediabetes Sleep apnea Bipolar 1 disorder Bone spur of foot Osteoarthritis of spine Depression <JILLIAN Ramirez Last Filed: 06/30/24 16:25> Surgical History Surgical History: Surgical History Status post total right knee replacement (~05/14/24) Custom H/O: hysterectomy <Sully Redd PA-C - Last Filed: 06/30/24 16:25> Family History Family History: Family History Mother Diabetes mellitus Sibling Hypertension Diabetes mellitus Unknown Diabetes mellitus Family history of malignant neoplasm of ovary <Sully Redd PA-C - Last Filed: 06/30/24 16:25> Social History Social History: Social History Smoking status: Never smoker Alcohol intake: never Alcohol use details: Wine 1 or 2 times a month Substance use: never Substance use type: does not use Do You Feel Safe in your Home?: Yes Lack of Transportation: No Lack of Food: Never True Current Housing: I Have Housing Concerned About Future Housing: No Difficulty Paying Gas/Electric Bills: No Difficulty Paying for Meds: No Currently Unemployed: No Education: High School Diploma/GED Difficulty w/ Childcare or Family Care: No Living arrangements: with roommate(s) Occupation/Education: occupation Additional occupation/education comments: Patient Access Gender identity (if verbalized by the patient): Female Spiritual care concerns: No Agree to blood products: Yes <Sully Redd PA-C - Last Filed: 06/30/24 16:25> Exam Narrative: GENERAL: Mildly uncomfortable appearing, obese with BMI of 36.1, non-toxic, in no acute distress. HEAD: Normocephalic, atraumatic. RESPIRATORY: Airway patent, respirations nonlabored. Clear to auscultation bilaterally, no rales, rhonchi, wheezing. CARDIOVASCULAR: Regular rate and rhythm without murmurs, rubs, or gallops. ABDOMINAL: Soft, focal tenderness in right lower quadrant, no rebound, negative Rovsing's, nondistended. Normoactive BS. MUSCULOSKELETAL: Moves all extremities. No gross deformities. SKIN: Warm, dry, normal color. NEURO: A&O X3. Speech clear. PSYCHIATRIC: Appropriate mood and affect. Normal interaction. <JILLIAN Ramirez Last Filed: 06/30/24 16:25> Course DRY TRANSFER MAN/PA Physician Supervision For this patient encounter, I reviewed the DRY TRANSFER MAN or PA documentation, treatment plan, and medical decision making; and I had [id number] time with this patient. <Paddy Gavin MD - Last Filed: 06/30/24 19:57> Vital Signs Vital signs: Vital Signs Temperature 97.7 F 06/30/24 15:48 Pulse Rate 80 06/30/24 15:48 Respiratory Rate 18 06/30/24 15:48 Blood Pressure 138/88 06/30/24 15:48 Pulse Oximetry 98 06/30/24 15:48 Oxygen Delivery Room Air 06/30/24 15:48 Temperature 98.6 F 06/30/24 18:07 Pulse Rate 81 06/30/24 18:50 Respiratory Rate 14 06/30/24 18:50 Blood Pressure 130/56 L 06/30/24 18:50 Pulse Oximetry 92 06/30/24 18:50 Oxygen Delivery Room Air 06/30/24 18:50 Oxygen Flow Rate 8 06/30/24 18:20 <Sully Redd PA-C - Last Filed: 06/30/24 16:25> Vital Signs Temperature 97.7 F 06/30/24 15:48 Pulse Rate 80 06/30/24 15:48 Respiratory Rate 18 06/30/24 15:48 Blood Pressure 138/88 06/30/24 15:48 Pulse Oximetry 98 06/30/24 15:48 Oxygen Delivery Room Air 06/30/24 15:48 Temperature 98.6 F 06/30/24 18:07 Pulse Rate 81 06/30/24 18:50 Respiratory Rate 14 06/30/24 18:50 Blood Pressure 130/56 L 06/30/24 18:50 Pulse Oximetry 92 06/30/24 18:50 Oxygen Delivery Room Air 06/30/24 18:50 Oxygen Flow Rate 8 06/30/24 18:20 <Paddy Gavin MD - Last Filed: 06/30/24 19:57> MDM - Abdominal Pain MDM Narrative Medical decision making narrative: Patient presented to ED from general surgery office for evaluation of acute appendicitis. Patient to go to the OR today. Discussed case with Dr. Atwood, general surgery, advised will take patient to the OR after current case. Patient in agreement with plan. VSS. Given dose of zosyn and pain medication in the ED. <JILLIAN Ramirez Last Filed: 06/30/24 16:25> Medical Records Attestation: I reviewed the patient's medical records. <Sully Redd PA-C - Last Filed: 06/30/24 16:25> Discharge Plan Discharge Clinical Impression: Acute appendicitis Qualifiers: Acute appendicitis type: with localized peritonitis Appendicitis gangrene presence: without gangrene Appendicitis perforation presence: without perforation Appendicitis abscess presence: without abscess Qualified Code(s): K35.30 - Acute appendicitis with localized peritonitis, without perforation or gangrene <Sully Redd PA-C - Last Filed: 06/30/24 16:25> Patient Disposition: Other <JILLIAN Ramirez Last Filed: 06/30/24 16:25> Condition: Stable <JILLIAN Ramirez Filed: 06/30/24 16:25>
[2024-06-30] MEDS: ONDANSETRON INJ 4 MG/2 ML VIAL IV PUSH (16:06)
[2024-06-30] MEDS: HYDROmorphone HCL INJ (*CRX) 2 MG/ML VIAL 0.5 MG IV PUSH (16:06)
[2024-06-30] MEDS: PIPERACILLN/TAZ 3.375GM/NS50ML 3.375 GM/50 ML BAG IVPB (16:07)
[2024-06-30] MEDS: LACTATED RINGERS 1,000 ML 30 ML IV CONT ×2 (16:30→19:02)
--- NOTE | 2024-06-30 16:32 | WPDANESEPPF ---
Anes - Initial Pre Proc Eval Procedure: Operation Date: 06/30/24 16:30 Proposed Procedures p Laparoscopic Appendectomy - Noemi Atwood MD Date/Time: 06/30/24 16:32 Surgeon: Noemi Atwood MD Pre Op Diagnosis: abd pain Patient Data Age: 58 Gender: F Height: 1.65 m Weight: 98.3 kg Last Vital Signs Temp 36.5 C 06/30/24 15:48 Pulse 80 06/30/24 15:48 Resp 18 06/30/24 15:48 BP 138/88 06/30/24 15:48 Pulse Ox 98 06/30/24 15:48 O2 Del Method Room Air 06/30/24 15:48 Allergies Allergy/AdvReac Type Severity Reaction Status Date / Time No Known Allergies Allergy Unknown Verified 06/30/24 15:01 Home Medications ?Medication ?Instructions ?Recorded ?Confirmed ?Type lamotrigine 100 mg tablet 50 mg (1/2 x 100 mg) PO DAILY #90 09/23/23 06/05/24 Rx tabs oxybutynin chloride 15 mg 15 mg PO DAILY #90 tabs 09/23/23 06/05/24 Rx tablet,extended release 24 hr sertraline 100 mg tablet 50 mg (1/2 x 100 mg) PO DAILY #90 09/23/23 06/05/24 Rx tabs digestive enzym,plant- 1 cap PO DAILY 04/22/24 06/05/24 History capsule valacyclovir 500 mg tablet 500 mg PO Q12H 04/22/24 06/05/24 History vibegron 75 mg tablet (Gemtesa) 75 mg PO DAILY 05/14/24 06/05/24 History Patient hx anesthesia problems: none Family hx anesthesia problems: none Results Review: All pre-operative results and documents have been reviewed as part of the pre-operative evaluation. [facility] Past Medical History Medical History Bilateral primary osteoarthritis of knee Obesity Prediabetes Sleep apnea Bipolar 1 disorder Bone spur of foot Osteoarthritis of spine Depression Surgical History Surgical History Status post total right knee replacement (~05/14/24) Custom H/O: hysterectomy Family History Family History Mother Diabetes mellitus Sibling Hypertension Diabetes mellitus Unknown Diabetes mellitus Family history of malignant neoplasm of ovary Social History Social History Smoking status: Never smoker Alcohol intake: never Alcohol use details: Wine 1 or 2 times a month Substance use: never Substance use type: does not use Do You Feel Safe in your Home?: Yes Lack of Transportation: No Lack of Food: Never True Current Housing: I Have Housing Concerned About Future Housing: No Difficulty Paying Gas/Electric Bills: No Difficulty Paying for Meds: No Currently Unemployed: No Education: High School Diploma/GED Difficulty w/ Childcare or Family Care: No Living arrangements: with roommate(s) Occupation/Education: occupation Additional occupation/education comments: Patient Access Gender identity (if verbalized by the patient): Female Spiritual care concerns: No Agree to blood products: Yes Anes - Eval Final PreProcedure Day of Procedure 06/30/24 16:32 Patient weight: obese Heart: regular rate and rhythm Lungs: clear to auscultation Airway: Mallampati scale class II Neurological: alert and oriented Last oral intake: >/= 8 hours ASA classification: II Emergent: no Anesthetic plan: proceed Anesthesia type and monitoring: general ETT and standard monitoring Results Review: All pre-operative results and documents have been reviewed as part of the pre-operative evaluation. Informed Consent: The patient's anesthetic plan and its attendant risks and benefits were discussed with the patient/family/POA. Questions were solicited and answers provided to the satisfaction of the patient/family/POA.
--- NOTE | 2024-06-30 16:41 | WPDHPUPDATE1 ---
History and Physical Update Update Date/Time: 06/30/24 16:41 History and Physical has been reviewed, including an updated exam of the patient. There are NO changes in the patient's condition. Risks, benefits, and alternatives have been discussed and questions answered. Patient agrees to proceed with procedure.
[2024-06-30] MEDS: BUPIVACAINE/EPINEPHRINE 0.5% 50 ML VIAL 30 ML INFILTRATE (17:19)
--- NOTE | 2024-06-30 18:02 | W.PM.PROC2 ---
Procedure Note - Detailed Date of Procedure 06/30/24 Pre-op Diagnosis Acute appendicitis Post-op Diagnosis Other ( acute perforated appendicitis with intra-abdominal abscess) Procedure Performed laparoscopic appendectomy with drainage of intra-abdominal abscess Surgeon Noemi Atwood MD Anesthesia General and Local Indications 58-year-old female presenting to the office with severe right lower quadrant pain. Workup, including imaging, is significant for acute appendicitis with multiple appendicoliths. Findings Acute appendicitis with perforation and small intra-abdominal abscess Description of Procedure The patient was taken to the operating room and placed in the supine position. After adequate induction of general anesthesia, the patient was prepped and draped in the normal sterile fashion. A time-out was then done to verify the patient's identity, as well as the procedure being performed. I began by making a 5 mm incision in the infraumbilical region, through this a Veress needle was placed in the peritoneal cavity. CO2 gas was then insufflated and after adequate pneumoperitoneum was achieved the Veress needle was removed. Then placed a 5 mm Optiview trocar under direct visualization into the peritoneal cavity. I then insufflated through this trocar site and the endoscope was placed into the trocar. Under direct visualization, placed 2 further 5 mm suprapubic port as well as an additional 12 mm port in the left lower abdomen. At this point identified the cecum, I retracted the cecum both medially and superiorly allowing me to expose the appendix. The appendix was noted to be very dilated and inflamed. Around this area there was noted to be terminal ileum stuck to the appendix itself. Once this was dissected off, there was noted to be a small intra-abdominal abscess. This was washed out and drained. The appendix was noted to be very adherent to the right lateral sidewall as well as the ileum. I was able to bluntly dissect the appendix from these adhesions. I then was able to locate the base of the appendix with the cecum. I created a window with the [place] dissector between the appendix itself and the mesoappendix. I then transected the mesoappendix with a white vascular staple load. The Endo-ANA was then reloaded with a blue staple load and I transected the base of the appendix. There was still some adhesions to the appendix and these were taken down with the Bovie cautery. Once the specimen was completely detached, an endo-pouch was placed into the 12 mm port site and the specimen was removed through the endo-pouch. The appendiceal specimen will be sent to pathology for further review. I then copiously irrigated the right lower quadrant. Hemostasis was noted at both staple lines no other pathology was seen in this area. I then moved the camera to the suprapubic port to check our its port of entry. No iatrogenic injury or other pathology was noted in the upper abdomen. I then closed the 12 mm port site with a Tyler code and 0 Vicryl suture under direct visualization. At this point, the abdomen was desufflated and all ports were removed. All port sites were closed with 4 Monocryl subcuticular suture. Dermabond was placed on all wounds. The patient tolerated the procedure well and was extubated in the operating room postop. She will be sent to the recovery room in stable condition. Estimated Blood Loss 20 Drains No Packing No Pathology Yes Complications No immediate complications Condition Stable Disposition PACU [facility] Billing Surgery - Charge Forward: Surgery Billing
[2024-06-30] MEDS: fentaNYL CITRATE INJ (*CRX) 100 MCG/2 ML VIAL 25 MCG IV PUSH ×6 (18:49→20:20)
[2024-06-30] MEDS: oxyCODONE HCL (*CRX) 5 MG TAB IR PO (19:35)
--- NOTE | 2024-06-30 20:34 | SUR.PHASEII ---
2005 PT TRANSFERED TO STRETCHER FOR CHEST RAY. PLACED ON TRANSFER DEVICE.
[2024-06-30] MEDS: FAMOTIDINE 20 MG/2 ML VIAL IV PUSH (20:55)
[2024-06-30] MEDS: HYDROcodone/acetaminophen (*CRX) 5-325 MG TABLET 1 TAB PO (21:41)
[2024-06-30] MEDS: metroNIDAZOLE 500 MG/ISO 100ML 500 MG/100 ML BAG 100 MG IVPB (21:43)
--- NOTE | 2024-06-30 21:55 | ADMGEN ---
This patient, Deyanira Mckeon, was admitted to 3 [facility] Surg Room 332-01. Patient/family oriented to hospital policies and general routines including ID bracelet, bed and alarms, visiting hours, pain management, procedures, bathroom and other care routines, personal items, smoking policy, room service/diet, and visiting hours. Information on how to activate the Rapid Response Team has been discussed. Patient/Family are encouraged to report perceived risks to care and to ask questions if they do not understand what they are told or what they should do.
[2024-07-01] VITALS (8 sets, daily range): BP systolic 114–126; BP diastolic 49–69; PULSE 62–79; RESP 18–20; TEMP 36.3–37.3; O2SAT 88–98
[2024-07-01] MEDS: HYDROmorphone HCL INJ (*CRX) 2 MG/ML VIAL 1 MG IV PUSH ×2 (02:07→06:18)
[2024-07-01] MEDS: HYDROcodone/acetaminophen (*CRX) 5-325 MG TABLET 1 TAB PO ×4 (03:47→21:22)
[2024-07-01] MEDS: metroNIDAZOLE 500 MG/ISO 100ML 500 MG/100 ML BAG 100 MG IVPB ×3 (03:48→20:17)
[2024-07-01 06:24] LABS: Hematocrit 35.5 % (37.0-47.0); Hemoglobin 11.1 g/dL (12.0-15.0); Mean Corpuscular HGB Conc 31.3 g/dl (32-36); Mean Corpuscular Hemoglobin 29.3 pg (26-34); Mean Corpuscular Volume 93.7 fl (80-100); Mean Platelet Volume 10.1 fl (7.4-10.4); Platelet Count Result 250 k/mm3 (150-375); Red Blood Count 3.79 M/mm3 (4.2-5.4); Red Cell Distribution Width 12.4 % (11.5-14.5); White Blood Count 10.9 K/mm3 (4.5-10.0)
[2024-07-01 06:38] LABS: Anion Gap 6 mmol/L (4-12); Blood Urea Nitrogen 8 mg/dL (7-17); Calcium 8.8 mg/dL (8.4-10.2); Carbon Dioxide 30 mmol/L (22-30); Chloride 100 mmol/L (98-107); Estimated CRCL calculation 98 ml/min; Estimated Glomerular Filt Rate > 60; Glucose 151 mg/dL (65-110); Sodium 136 mmol/L (137-145)
[2024-07-01] MEDS: FAMOTIDINE 20 MG/2 ML VIAL IV PUSH ×2 (08:49→20:12)
[2024-07-01] MEDS: ENOXAPARIN 40 MG/0.4 ML SYRINGE SUB-Q (08:49)
[2024-07-01] MEDS: ONDANSETRON INJ 4 MG/2 ML VIAL IV PUSH (09:58)
--- NOTE | 2024-07-01 10:40 | PM.PNGS ---
Progress Note: A&P Assessment and Plan (1) Acute perforated appendicitis: Code(s): K35.32 - Acute appendicitis with perforation, localized peritonitis, and gangrene, without abscess Status: Acute Assessment and Plan: doing well, cont routine postop care, cont abx, ADAT, encourage OOB/IS Subjective Subjective Date/Time Seen: 07/01/24 10:40 Interval history: feels good, some incisional pain Review of Systems Review of Systems: All systems reviewed & are unremarkable except as noted in HPI and below Exam Const: General: cooperative, comfortable and no acute distress Resp: Auscultation: clear to auscultation bilaterally Cardio: Rate: regular rate Rhythm: regular rhythm GI: Inspection: normal to inspection and incision GI Palp: Yes abdominal tenderness and Yes Soft to palpation Objective Data Vital Signs Vital Signs: Vital Signs - 24 hr 06/30/24 15:48 06/30/24 16:48 06/30/24 18:07 Temperature 36.5 C 36.2 C L 37.0 C Pulse Rate 80 71 85 Respiratory Rate 18 20 13 Blood Pressure 138/88 141/76 H 132/83 Pulse Oximetry 98 98 97 Oxygen Delivery Room Air Room Air Simple Face Mask Oxygen Flow Rate 8 06/30/24 18:20 06/30/24 18:35 06/30/24 18:50 Temperature Pulse Rate 82 86 81 Respiratory Rate 12 13 14 Blood Pressure 137/70 132/64 130/56 L Pulse Oximetry 98 97 92 Oxygen Delivery Simple Face Mask Room Air Room Air Oxygen Flow Rate 8 06/30/24 19:09 06/30/24 19:20 06/30/24 19:40 Temperature Pulse Rate 73 78 82 Respiratory Rate Blood Pressure 135/73 128/88 130/78 Pulse Oximetry 90 90 94 Oxygen Delivery Room Air Room Air Nasal Cannula Oxygen Flow Rate 2 06/30/24 19:51 06/30/24 20:00 06/30/24 20:20 Temperature 36.8 C Pulse Rate 81 75 75 Respiratory Rate 18 Blood Pressure 131/61 128/75 129/77 Pulse Oximetry 98 95 96 Oxygen Delivery Nasal Cannula Nasal Cannula Oxygen Flow Rate 2 2 06/30/24 21:45 07/01/24 01:06 07/01/24 02:10 Temperature 36.3 C L 36.3 C L Pulse Rate 76 79 Respiratory Rate 18 18 Blood Pressure 117/53 L 114/49 L Pulse Oximetry 98 88 L 91 Oxygen Delivery Oxygen Flow Rate 07/01/24 05:06 07/01/24 08:00 Temperature 37.0 C 36.6 C Pulse Rate 68 62 Respiratory Rate 18 18 Blood Pressure 126/57 L 116/61 Pulse Oximetry 92 91 Oxygen Delivery Oxygen Flow Rate Intake/Output Intake/Output: Intake & Output 06/28/24 06/29/24 06/30/24 07/01/24 23:59 23:59 23:59 23:59 Intake Total 1050 790 Balance 1050 790 Meds/Results Medications: Active Medications Generic Name Dose Route Start Last Admin Trade Name Freq PRN Reason Stop Dose Admin Hydrocodone Bitart/Acetaminophen 1 tab 06/30/24 19:51 07/01/24 03:47 Hydrocodone/Acetaminophen (*Crx) 5-325 Mg Tablet PO 1 tab Q4H PRN Administration Pain Rated 4-6 Enoxaparin Sodium 40 mg 07/01/24 09:00 07/01/24 08:49 Enoxaparin 40 Mg/0.4 Ml Syringe SUB-Q 40 mg DAILY JOSE ROBERTO Administration Famotidine 20 mg 06/30/24 21:00 07/01/24 08:49 Famotidine 20 Mg/2 Ml Vial IV PUSH 20 mg Q12HR JOSE ROBERTO Administration Hydromorphone HCl 1 mg 07/01/24 01:59 07/01/24 06:18 Hydromorphone Hcl Inj (*Crx) 2 Mg/Ml Vial IV PUSH 1 mg Q2H PRN Administration Breakthrough Pain Rated 7-10 or NPO Hydromorphone HCl 0.5 mg 07/01/24 01:59 Hydromorphone Hcl Inj (*Crx) 2 Mg/Ml Vial IV PUSH Q2H PRN Breakthrough Pain Rated 4-6 or NPO Ceftriaxone Sodium 1 gm in 50 mls @ 100 mls/hr 06/30/24 20:00 06/30/24 20:51 Rocephin 1 Gm/Ns 50 Ml IVPB 100 mls/hr Q24H JOSE ROBERTO Administration Metronidazole 500 mg in 100 mls @ 100 mls/hr 06/30/24 20:00 07/01/24 03:48 Flagyl 500 Mg/Iso Soln 100 Ml IVPB 100 mls/hr Q8H JOSE ROBERTO Administration Naloxone HCl 0.1 mg 06/30/24 19:51 Naloxone Hcl 0.4 Mg/Ml Vial IV PUSH Q2M PRN Opiate Reversal Ondansetron HCl 4 mg 06/30/24 19:51 07/01/24 09:58 Ondansetron Inj 4 Mg/2 Ml Vial IV PUSH 4 mg Q4H PRN Administration Nausea And Vomiting Radiology Results: ITS Impressions Chest X-Ray 06/30/24 20:32 IMPRESSION: Low volumes with crowding. Streaky bibasilar opacities likely represent atelectasis. Possible trace left pleural effusion. Labs Labs: Laboratory Results - last 24 hr 07/01/24 05:53 WBC 10.9 H RBC 3.79 L Hgb 11.1 L Hct 35.5 L MCV 93.7 MCH 29.3 MCHC 31.3 L RDW 12.4 Plt Count 250 MPV 10.1 Sodium 136 L Potassium 4.0 Chloride 100 Carbon Dioxide 30 Anion Gap 6 BUN 8 D Creatinine 0.63 L Estim Creat Clear Calc 98 Estimated GFR > 60 Glucose 151 H Calcium 8.8
--- NOTE | 2024-07-01 12:24 | PM.PNORT ---
Progress Note: A&P Assessment and Plan (1) Status post total right knee replacement: Onset Date: ~05/14/24 Code(s): Z96.651 - Presence of right artificial knee joint Status: Acute Plan 3 weeks status post total knee arthroplasty. Admitted for appendicitis. Mild pain. No problems with the wound. Compliant with physical therapy. Examination Wound healing well. No drainage. No erythema. Mild swelling. No edema. Satisfactory range of motion. Calf nontender. Distal neurologic status intact. Impression Doing well. Increase activity cautiously, as discussed. Questions answered. Exercises reviewed. Follow-up as outpatient per routine. Subjective Subjective Date/Time Seen: 07/01/24 12:24 Objective Data Vital Signs Vital Signs: Vital Signs - 24 hr 06/30/24 15:48 06/30/24 16:48 06/30/24 18:07 Temperature 36.5 C 36.2 C L 37.0 C Pulse Rate 80 71 85 Respiratory Rate 18 20 13 Blood Pressure 138/88 141/76 H 132/83 Pulse Oximetry 98 98 97 Oxygen Delivery Room Air Room Air Simple Face Mask Oxygen Flow Rate 8 06/30/24 18:20 06/30/24 18:35 06/30/24 18:50 Temperature Pulse Rate 82 86 81 Respiratory Rate 12 13 14 Blood Pressure 137/70 132/64 130/56 L Pulse Oximetry 98 97 92 Oxygen Delivery Simple Face Mask Room Air Room Air Oxygen Flow Rate 8 06/30/24 19:09 06/30/24 19:20 06/30/24 19:40 Temperature Pulse Rate 73 78 82 Respiratory Rate Blood Pressure 135/73 128/88 130/78 Pulse Oximetry 90 90 94 Oxygen Delivery Room Air Room Air Nasal Cannula Oxygen Flow Rate 2 06/30/24 19:51 06/30/24 20:00 06/30/24 20:20 Temperature 36.8 C Pulse Rate 81 75 75 Respiratory Rate 18 Blood Pressure 131/61 128/75 129/77 Pulse Oximetry 98 95 96 Oxygen Delivery Nasal Cannula Nasal Cannula Oxygen Flow Rate 2 2 06/30/24 21:45 07/01/24 01:06 07/01/24 02:10 Temperature 36.3 C L 36.3 C L Pulse Rate 76 79 Respiratory Rate 18 18 Blood Pressure 117/53 L 114/49 L Pulse Oximetry 98 88 L 91 Oxygen Delivery Oxygen Flow Rate 07/01/24 05:06 07/01/24 08:00 07/01/24 08:50 Temperature 37.0 C 36.6 C Pulse Rate 68 62 Respiratory Rate 18 18 Blood Pressure 126/57 L 116/61 Pulse Oximetry 92 91 91 Oxygen Delivery Nasal Cannula Oxygen Flow Rate 2 Intake/Output Intake/Output: Intake & Output 06/28/24 06/29/24 06/30/24 07/01/24 23:59 23:59 23:59 23:59 Intake Total 1050 890 Balance 1050 890 Meds/Results Medications: Active Medications Generic Name Dose Route Start Last Admin Trade Name Freq PRN Reason Stop Dose Admin Hydrocodone Bitart/Acetaminophen 1 tab 06/30/24 19:51 07/01/24 12:17 Hydrocodone/Acetaminophen (*Crx) 5-325 Mg Tablet PO 1 tab Q4H PRN Administration Pain Rated 4-6 Enoxaparin Sodium 40 mg 07/01/24 09:00 07/01/24 08:49 Enoxaparin 40 Mg/0.4 Ml Syringe SUB-Q 40 mg DAILY JOSE ROBERTO Administration Famotidine 20 mg 06/30/24 21:00 07/01/24 08:49 Famotidine 20 Mg/2 Ml Vial IV PUSH 20 mg Q12HR JOSE ROBERTO Administration Hydromorphone HCl 1 mg 07/01/24 01:59 07/01/24 06:18 Hydromorphone Hcl Inj (*Crx) 2 Mg/Ml Vial IV PUSH 1 mg Q2H PRN Administration Breakthrough Pain Rated 7-10 or NPO Hydromorphone HCl 0.5 mg 07/01/24 01:59 Hydromorphone Hcl Inj (*Crx) 2 Mg/Ml Vial IV PUSH Q2H PRN Breakthrough Pain Rated 4-6 or NPO Ceftriaxone Sodium 1 gm in 50 mls @ 100 mls/hr 06/30/24 20:00 06/30/24 20:51 Rocephin 1 Gm/Ns 50 Ml IVPB 100 mls/hr Q24H JOSE ROBERTO Administration Metronidazole 500 mg in 100 mls @ 100 mls/hr 06/30/24 20:00 07/01/24 12:17 Flagyl 500 Mg/Iso Soln 100 Ml IVPB 100 mls/hr Q8H JOSE ROBERTO Administration Naloxone HCl 0.1 mg 06/30/24 19:51 Naloxone Hcl 0.4 Mg/Ml Vial IV PUSH Q2M PRN Opiate Reversal Ondansetron HCl 4 mg 06/30/24 19:51 07/01/24 09:58 Ondansetron Inj 4 Mg/2 Ml Vial IV PUSH 4 mg Q4H PRN Administration Nausea And Vomiting Radiology Results: ITS Impressions Chest X-Ray 06/30/24 20:32 IMPRESSION: Low volumes with crowding. Streaky bibasilar opacities likely represent atelectasis. Possible trace left pleural effusion. Labs Labs: Laboratory Results - last 24 hr 07/01/24 05:53 WBC 10.9 H RBC 3.79 L Hgb 11.1 L Hct 35.5 L MCV 93.7 MCH 29.3 MCHC 31.3 L RDW 12.4 Plt Count 250 MPV 10.1 Sodium 136 L Potassium 4.0 Chloride 100 Carbon Dioxide 30 Anion Gap 6 BUN 8 D Creatinine 0.63 L Estim Creat Clear Calc 98 Estimated GFR > 60 Glucose 151 H Calcium 8.8
[2024-07-02] VITALS: BP 103/61; PULSE 65; RESP 18; TEMP 36.3; O2SAT 92
--- NOTE | 2024-07-02 03:12 | P.PNCROSS_ITS ---
Event Note Event Note Event Note: This is a 58-year-old female patient who was admitted primarily to the surgical service for acute appendicitis with perforation. Patient underwent appendectomy via laparoscopic procedure. Postoperatively patient had extended time frame hypoxia in recovery and remained on oxygen upon arrival back to the floor. Thus, Hospitalist Service was consulted for co-management. On my evaluation of the patient she has been weaned from oxygen. Patient tells me that she snores quite loudly at home and when she was getting the pain medication she felt her tissues relaxing and believes she was having the decreased oxygen level related to likely sleep apnea. Patient when awake smil ing interactive in no distress. Patient also notes that she had right knee replacement 3 weeks ago. Chest x-ray reviewed and lungs are fully expanded. Patient explains that taking a deep breath causes right-sided abdominal pain. She states that also she has not been very active since her knee replacement. She demonstrated the ability to use incentive spirometer with splinting her right-sided abdomen. She was encouraged to do so quite frequently. Her target had to be adjusted and she was able to feel confident in hitting the target and remembering to cough/deep breathe more often. PRN Duonebs ordered. Lung sounds clear. Patient in no distress. Hypoxia has resolved. If she does not discharge on 07/02 for whatever reason, I recommend [employer] to screen for BUDDY. I expect that patient will be discharged by Primary Service on 07/02 though. Hospitalist Service will forgo daily rounding at this point but be available for further concerns if needed.
[2024-07-02] MEDS: metroNIDAZOLE 500 MG/ISO 100ML 500 MG/100 ML BAG 100 MG IVPB ×2 (03:13→12:14)
[2024-07-02 04:00] VITALS: BP 120/51; PULSE 77; RESP 18; TEMP 36.5; O2SAT 94
[2024-07-02] MEDS: oxyBUTYnin CHLORIDE XL 5 MG TAB.ER.24 15 MG PO (08:12)
[2024-07-02] MEDS: lamoTRIgine 50 MG TABLET PO (08:12)
[2024-07-02] MEDS: SERTRALINE HCL 50 MG TABLET PO (08:12)
[2024-07-02] MEDS: FAMOTIDINE 20 MG/2 ML VIAL IV PUSH (08:13)
[2024-07-02] MEDS: ENOXAPARIN 40 MG/0.4 ML SYRINGE SUB-Q (08:13)
[2024-07-02] MEDS: HYDROcodone/acetaminophen (*CRX) 5-325 MG TABLET 1 TAB PO ×2 (08:19→13:30)
[2024-07-02 12:12] VITALS: O2SAT 94
--- NOTE | 2024-07-02 13:53 | P.DS_ITS ---
DS: Admitting Diagnosis Discharge Date 07/02/24 Admitting Diagnosis acute perforated appendicitis with abscess DS: Summary Hospital Course Reason for hospitalization: Patient is a 58 yr old female who presented to [facility] ER on 06/27/24 with severe RLQ pain. CT showed possible acute appendicitis. She was discharged with antibiotics. She continued to experience pain and diarrhea and presented to [facility] outpatient clinic on 06/30. She was taken emergently to the OR for a laparoscopic appendectomy and was found to have perforated appendicitis with abscess. Hospital Course: After surgery, patient was admitted to the hospital for post-op observation and antibiotic treatment. She tolerated post op care well and remained medically stable throughout admission. Diet was advanced and tolerated. Bowel function returned and white count normalized. Hospitalist consulted for prolonged hypoxia after surgery requiring O2. She was weaned off oxygen and PRN Duonebs were ordered. Hypoxia resolved. Of note, patient had a total right knee replacement 3 weeks ago and ortho (Dr. Beavers) evaluated patient while admitted. Status at Discharge Functional status at discharge: independent ambulation Overall status at discharge: patient is back to baseline Time Spent with Patient Time attestation: Total time spent providing and/or coordinating discharge services: Exam Const: General: comfortable and no acute distress HENMT: Mouth: Yes moist mucous membranes Eyes: Pupils: Equal, round and reactive pupils present Neck: Neck: supple Resp: Effort & Inspection: normal respiratory effort Auscultation: clear to auscultation bilaterally Cardio: Rate: regular rate Rhythm: regular rhythm GI: Inspection: non-distended GI Palp: Yes Soft to palpation, Yes Tenderness to palpation present (GI) (appropriate incisional tenderness) and No Guarding due to palpation present (GI) Auscultation: normal bowel sounds : Other: Incisions are clean and dry with glue intact. No erythema or drainage or other signs of infection. DS: Data Data Completed and Pending Completed studies during hospitalization: Pending at discharge 06/30/24 17:22 Surgical [PTH] Routine Discharge Plan Discharge Attending physician on discharge: Noemi Atwood Consulting providers: Dawit Lambert Discharging Clinician: Jeannie Phan Anticipated Discharge Date/Time: 07/02/24 13:02 Patient Disposition: Home Activity: may shower and other - see discharge instructions Diet: as tolerated Wound Care Instructions: incision open to air Discharge Instructions: DISCHARGE INSTRUCTION SHEET FOR HERNIA, GALLBLADDER AND APPENDIX SURGERIES DR. ATWOOD 1. May shower, no soaking in bath x 2weeks. 2. Call office for: * Wound increasingly painful or bleeding * Vomiting * Fever of greater than 101 degrees 3. If no bowel movement for three days, take 1 oz. (30 ml) Milk of Magnesia or MiraLax 17g 1 to 2 times daily. 4. No heavy lifting > 10-15 pounds x 2 weeks for laparoscopic cholecystectomy or appendectomy. 5. No driving for 3 days or while taking narcotic pain medications. 6. Ice to surgical site for 48 hours (30 min on, then 30 min off). 7. Up walking 10-30 minutes three times per day. 8. Resume previous home medications. 9. Follow-up with Dr. Atwood in our office in 2 weeks. Call for an appointment. ([phone]) 10. Oral pain medications prescription to be sent to pharmacy. Take Tylenol 500mg every 6 hours and Ibuprofen 600mg every 6 hours for the first 2 days, then as needed. 11. Continue a low-fat diet for 2 weeks Patient Instructions: Low Fat Diet (DC) Patient Language: Tuvaluan Stand Alone Forms: General Discharge Instructions Follow-up/Referrals: Noemi Atwood MD [Physician] - 2 Weeks Dante Beavers MD [Physician] - Keep Reg. Scheduled Appt. Liyah Mcgee APRN [Primary Care Provider] - Discharge Medications: New hydrocodone-acetaminophen 5-325 mg tablet 1 tablet PO Q6H PRN (Reason: pain) Qty: 20 0RF ciprofloxacin HCl [Cipro] 500 mg tablet 500 mg PO Q12H Qty: 14 0RF metronidazole 500 mg tablet 500 mg PO Q8H Qty: 21 0RF Continued lamotrigine 100 mg tablet 50 mg PO DAILY Qty: 90 3RF oxybutynin chloride 15 mg tablet extended release 24hr 15 mg PO DAILY Qty: 90 3RF sertraline 100 mg tablet 50 mg PO DAILY Qty: 90 3RF valacyclovir 500 mg tablet 500 mg PO Q12H PRN (Reason: fever blister) digestive enzym,[id number] Capsule 1 cap PO DAILY Gemtesa 75 mg tablet 75 mg PO DAILY Date of admission: 06/30/24 20:57 Primary Care Provider: Liyah Mcgee Admitting Provider: Noemi Atwood Attending physician on admission: Noemi Atwood Condition: Stable
--- OUTSIDE RECORDS SUMMARY | 2024-07-03 13:02 | XMS_ITS | Data Portability ---
Author Organization [facility], Main Office Address [address] [place] [address] Care Team Providers Care Keno Writer Name Role Phone MARAL JERMAN Primary Care Provider [phone] JERMAN ALICIA Referring Provider [phone] Assessment Encounter Date Assessment Date Assessment LastModified [...] in treatment patient more than half this ukjz-gu-xloi conversation Not available 06/27/2022 09:01:13 05/20/2023 05/20/2023 The patient has severe primary osteoarthritis of the right knee joint with [id number] changes in medial and patellofemoral compartments. We [...] procedure, administere d by provider 2023 024 [email or web address] In-Office Order, Internal Use Only DO Not Attach Compendium DO Not Attach Compendium, Do Not Delete/merge, [id number] 4 09:26:25 injection/a spiration joint/bursa (PROC) - in office procedure, administere d by provider 2022 023 [email or web address] In-Office Order, Internal Use Only DO Not Attach Compendium DO Not Attach Compendium, Do Not Delete/merge, [id number] 3 08:53:37 Surgeries None recorded. Imaging XR, knee 2023 024 [email or web address] [facility] [place], [address], [place], [id number], 4 11:47:31 Medication Orders Kenalog 10 mg/mL suspension for injection [address] [id number], [address], [place], [place], [id number], 4 10:29:31 bupivacaine (PF) 0.25 % (2.5 mg/mL) injection solution [address] [id number], [address], [place], [place], [id number], 4 10:29:31 Kenalog 10 mg/mL suspension for injection [address] [id number], [address], [place], [place], [id number], 3 10:30:52 ropivacaine (PF) 5 mg/mL (0.5 %) injection solution [address] [id number], [address], [place], [place], [id number], 3 10:30:52 Patient TargetsNo targets recorded. Patient InstructionsNo instructions recorded. Reason for Referral None Reported. Results Created Date Observation Date Name Description Value Unit Range Abnormal Flag Note LastModifiedBy Organization Detail LastModifiedTime 09/02/19 22 09/01/2021 XR, knee No observ ation record ed. [id number] [facility] [place] [address], [id number], 04/12/2022 00:31:16 05/20/19 24 XR, knee No observ ation record ed. [email or web address] [facility] [place] [address], [id number], 05/20/2023 09:39:25 06/29/19 25 06/27/2024 imagi ng/di agnos tic resul t No observ ation record ed. [facility] [address], [place], [address], 06/29/2024 00:29:41 Result Notes None recorded. Problems Name Problem SNOMED Code Status Onset Date Resolution Date Notes Provider Name and Address Organization Details Recorded Time Bilateral osteoarthr itis of knees 9977042523193 07 Active 2021 Not Available [facility] 3 00:29:31 Osteoarthr itis of right knee joint 7347428213387 00 Active 2021 Not Available [facility] 3 00:29:32 Osteoarthr itis 776812602 Active 2021 Not Available [facility] 3 00:29:32 Pain of right knee joint 8030830190437 00 Active 2023 FLOR Pierson [address], [facility] [address], [place], [address] , [facility] [email or web address] 4 09:39:34 Problem Notes None recorded. Procedures Surgical History None recorded. Imaging Results Imaging Date Name Status LastModified by Organ [facility] Details LastModified Time 09/01/2021 XR, knee completed [id number] [facility] [place] [address], [id number], 04/12/2022 00:31:16 05/20/2023 XR, knee completed [email or web address] [facility] [place] [address], [id number], 05/20/2023 09:39:06/27/2024 imaging/she gnostic result active [facility] [address], [place], [address], 06/29/2024 00:29:41 Procedure Notes None recorded. Medical Equipment None [...] suspension for injection in office 2023 active NDC: 0003- 0494- 20 Not Available Not Available [...] Updated DateTime 06/15/2021 42 kg/m2 167.64 cm 789695.94 g Not Available [facility] 04/12/2022 00:29:07 Date Recorded Body mass index (BMI) Body height Body weight Provider Name and Address Organization Details Last Updated DateTime 09/01/2021 43.4 kg/m2 165.1 cm 535197.61 g Not Available [facility] 04/12/2022 00:29:07 Date Recorded Body height Provider Name an d Address Organization Details Last Updated DateTime 10/13/2021 165.1 cm Not Available [facility] 00:29:07 Date Recorded Body height Body mass index (BMI) Body weight Provider Name and Address Organization Details Last Updated DateTime 06/27/2022 165.1 cm 37.8 kg/m2 823303.47 BIJAN Kennedy [facility] [email or web address] [facility] 06/27/2022 08:47:29 Date Recorded Body height Body mass index (BMI) Body weight Provider Name and Address Organization Details Last Updated DateTime 05/20/2023 167.64 cm 32.3 kg/m2 16835.47 jermain Sheridan Jose [facility] [email or web address] [facility] 05/20/2023 09:08:29 Social History None recorded. Functional Status Question Answer Note LastModified by Organizat ion Details LastModified Time What is your level of alcohol consumption? Occasional [id number] Information not available 04/12/2022 Mental Status None recorded. Family History Relationship Description Onset Age of this Age Resolved Age Notes LastModified by Organization Details LastModified Time Mother Hypertensive disorder [id number] Not available 04/12/2022 00:27:32 Mother Diabetes mellitus [id number] Not available 04/12/2022 00:27:32 Brother Diabetes mellitus [id number] Not available 04/12/2022 00:27:32 Mother Family history of malignant neoplasm Not available 2022 08:44:03 Sister Family history of malignant neoplasm [email or web address] Not available 2022 08:44:03 Medical History Condition Response URINARY/BLADDER/KIDNEY PROBLEMS Y Gynecological HistoryNo gynecological history recorded. Obstetrics History GPAL:G 0 P 0 0 0 0 Past Encounters Encounter ID Performer Location Encounter Start Date Encounter Closed Date Diagnosis/Indication Diagnosis SNOMED-CT Code Diagnosis ICD10 Code Diagnosis Note [id number] Diony Tirado MD [facility] [place] [address] [place] [id number] 05/04/2021 00:00:00 05/04/2021 15:38:53 [id number] Diony Tirado MD [facility] [place] [address] [place] [id number] 06/15/2021 00:00:00 06/15/2021 11:14:56 [id number] Juan Manuel MD [facility] [place] [address] [place] [address] 09/01/2021 00:00:00 10/10/2021 19:02:36 [id number] Juan Manuel MD [facility] [place] [address] [place] [address] 10/13/2021 00:00:00 10/13/2021 09:28:22 [id number] Juan Manuel MD [facility] [place] [address] [place] [address] 06/27/2022 08:28:56 06/27/2022 09:10:52 Osteoarthritis of right knee joint 2006406918 71134 M17.11 [id number] Agustín Bryant MD [facility] [place] [address] [place] [address] 05/20/2023 09:06:13 05/20/2023 11:47:31 Osteoarthritis of right knee joint 7893186009 37696 M17.11 Pain of ri ght knee joint 7300698398 29516 M25.561 Health Concerns Section Related Observation LastModified by Organization Detai ls LastModified Time None Recorded Concern Status LastModified by Organization Details LastModified Time None Recorded Advance Directives Directive None Recorded Payers Encounter Date Sequence Insurance Name Policy Number Policy Barrientos Covered Member ID Barrientos Member ID Guarantor Name 06/27/2022 1 [facility] [id number] Deyanira Mckeon [id number] Deyanira Mckeon 05/20/2023 1 [facility] [id number] Deyanira Mckeon [id number] Deyanira Mckeon Notes Date Note Type Note [...] been no significant change. FLOR Pi[place] [address], [place], [address], [facility] 05/20/2023 09:40:13 OBGyn Episode No OBEpisode recorded.
== END 2024-07-02 13:41 | disposition home or self-care (01) | DRG 399 ==
LOC: ANHED 16:07 → ANHSURGERY 16:19 → ANH3MEDSUR 21:00
PROVIDERS: Admitting Provider Surgery; Emergency Provider Physician Assistant; PCP Nurse Practitioner Adult Health; Visit Provider Surgery
PROC: 0DTJ4ZZ Resection of Appendix, Percutaneous Endoscopic Approach (ICD-10-PCS; CPT 44970; principal; 2024-06-30 16:30)
DX: K35.33 Acute appendicitis with perforation, localized peritonitis, and gangrene, with abscess (principal); R73.03 Prediabetes; G47.30 Sleep apnea, unspecified; M47.819 Spondylosis without myelopathy or radiculopathy, site unspecified; F31.9 Bipolar disorder, unspecified; Z96.651 Presence of right artificial knee joint
CPT/HCPCS: 36415; 71046; 80048; 85027; 88304; 96361; 96365; 96375; 96376; 99285; A9270; J0696; J1100; J1171; J1596; J1650; J1836; J2003; J2250; J2405; J2543; J2704; J3010; J7120

== ENCOUNTER 2024-07-21 12:27 | Outpatient (CLI) | payer OTHER, SELFPAY ==
--- NOTE | ~2024-07-21 | XR_ITS ---
XR knee RT 3V Ordering provider: Dante Beavers History: . Z47.1 - Aftercare following joint replacement surgery . Comparison: June 05 2024 FINDINGS: BONES: No acute fracture or dislocation. JOINT SPACES: Total knee arthroplasty. SOFT TISSUES: Normal. IMPRESSION: No acute osseous abnormality right knee. Total knee arthroplasty. Reviewed, dictated and finalized at location A.
== END 2024-07-21 12:28 | disposition home or self-care (01) ==
PROVIDERS: PCP Nurse Practitioner Adult Health; Visit Provider Orthopaedic Surgery
DX: Z96.651 Presence of right artificial knee joint (principal); Z47.1 Aftercare following joint replacement surgery
CPT/HCPCS: 73562

== ENCOUNTER 2024-09-24 08:56 | Outpatient (CLI) | payer OTHER, SELFPAY ==
[2024-09-24 19:05] LABS: Alanine Aminotransferase 22 U/L (6-35); Albumin Level 4.5 g/dL (3.5-5.1); Alkaline Phosphatase 89 U/L (38-126); Anion Gap 7 mmol/L (4-12); Aspartate Amino Transferase 45 U/L (14-36); Bilirubin,Total 0.5 mg/dL (0.2-1.3); Blood Urea Nitrogen 17 mg/dL (7-17); Calcium 9.7 mg/dL (8.4-10.2); Carbon Dioxide 29 mmol/L (22-30); Chloride 103 mmol/L (98-107); Cholesterol 255 mg/dL (0-200); Estimated Glomerular Filt Rate > 60; Glucose 92 mg/dL (65-110); HDL Direct 60 mg/dL; Potassium 4.2 mmol/L (3.4-5.0); Sodium 139 mmol/L (137-145); Total Protein 8.0 g/dL (6.3-8.2); Triglycerides 68 mg/dL (<150)
[2024-09-24 19:09] LABS: Hematocrit 42.1 % (37.0-47.0); Hemoglobin 13.0 g/dL (12.0-15.0); Mean Corpuscular HGB Conc 30.9 g/dl (32-36); Mean Corpuscular Hemoglobin 28.7 pg (26-34); Mean Corpuscular Volume 92.9 fl (80-100); Platelet Count Result 216 k/mm3 (150-375); Red Blood Count 4.53 M/mm3 (4.2-5.4); White Blood Count 5.2 K/mm3 (4.5-10.0)
[2024-09-24 19:37] LABS: Thyroid Stimulating Hormone 2.310 uIU/mL (0.465-4.680)
[2024-09-24 20:11] LABS: Hemoglobin A1C 5.9 % (<5.7)
== END 2024-09-24 08:57 | disposition home or self-care (01) ==
LOC: ANHBWCLAB 08:58
PROVIDERS: PCP Nurse Practitioner Adult Health; Visit Provider Nurse Practitioner Adult Health
DX: R73.03 Prediabetes (principal); Z00.00 Encounter for general adult medical examination without abnormal findings
CPT/HCPCS: 36415; 80053; 80061; 83036; 84443; 85027

== ENCOUNTER → 2024-11-16 10:12 | Outpatient (CLI) | payer OTHER, SELFPAY ==
--- NOTE | ~2024-11-16 | XR_ITS ---
EXAMINATION: XR hip RT 2V w AP pelvis, 11/16/2024 10:00 CDT HISTORY: M25.551 - Pain in right hip COMPARISON: No comparisons available. Findings: No acute fracture or malalignment. No significant degenerative changes. Soft tissues unremarkable. Impression: No acute fracture or malalignment. Reviewed, dictated and finalized at location P. Impression: No acute fracture or malalignment.
--- NOTE | ~2024-11-16 | XR_ITS ---
EXAMINATION: XR knee RT 3V, 11/16/2024 10:15 CDT HISTORY: Z96.651 - Presence of right artificial knee joint COMPARISON: No comparisons available. Findings: No acute fracture or malalignment. Prosthesis intact Soft tissues unremarkable. Impression: No acute fracture or malalignment. Reviewed, dictated and finalized at location P. Impression: No acute fracture or malalignment.
--- OUTSIDE RECORDS SUMMARY | 2024-11-16 11:30 | XMS_ITS | Data Portability ---
Author Organization [place] - [facility], Main Office Address [address] [place] [address] Care Team Providers Care Development And Housing Director Name Role Phone JERMAN ALICIA Primary Care Provider [phone] JERMAN ALICIA Referring Provider [phone] Assessment Encounter Date Assessment Date Assessment LastModified [...] in treatment patient more than half this lnbr-sa-blhb conversation Not available 06/27/2022 09:01:13 05/20/2023 05/20/2023 The patient has severe primary osteoarthritis of the right knee joint with ggnw-bn-thne changes in medial and patellofemoral compartments. We [...] procedure, administere d by provider 2023 024 [email or web address] In-Office Order, Internal Use Only DO Not Attach Compendium DO Not Attach Compendium, Do Not Delete/merge, [id number] 09:26:25 injection/a spiration joint/bursa (PROC) - in office procedure, administere d by provider 2022 023 [email or web address] In-Office Order, Internal Use Only DO Not Attach Compendium DO Not Attach Compendium, Do Not Delete/merge, [id number] 08:53:37 Surgeries None recorded. Imaging XR, knee 04/08/ 2024 04/08/2 024 [email or web address] [facility] [place], [address], [place], [address], 4 11:47:31 Medication Orders Kenalog 10 mg/mL suspension for injection [address] [id number], [address], [place], [place], [id number], 4 10:29:31 bupivacaine (PF) 0.25 % (2.5 mg/mL) injection solution [address] [id number], [address], [place], [place], [id number], 4 10:29:31 Kenalog 10 mg/mL suspension for injection [address] [id number], [address], [place], [place], [id number], 3 10:30:52 ropivacaine (PF) 5 mg/mL (0.5 %) injection solution [address] [id number], [address], [place], [place], [id number], 3 10:30:52 Patient TargetsNo targets recorded. Patient InstructionsNo instructions recorded. Reason for Referral None Reported. Results Created Date Observation Date Name Description Value Unit Range Abnormal Flag Note LastModifiedBy Organization Detail LastModifiedTime 09/02/19 22 09/01/2021 XR, knee No observ ation record ed. [id number] [facility] [place] [address], [place], [address], 04/12/2022 00:31:16 05/20/19 24 XR, knee No observ ation record ed. [email or web address] [facility] [place] [address] [facility] [address], [place], [address], 05/20/2023 09:39:25 06/29/19 25 06/27/2024 imagi ng/di agnos tic resul t No observ ation record ed. [facility] [address], [place], [address], 06/29/2024 00:29:41 Result Notes None recorded. Problems Name Problem SNOMED Code Status Onset Date Resolution Date Notes Provider Name and Address Organization Details Recorded Time Bilateral osteoarthr itis of knees 8558341321289 07 Active 2021 Not Available Formerly [facility] 3 00:29:31 Osteoarthr itis 412263533 Active 2021 Not Available [facility] 3 00:29:32 Osteoarthr itis of right knee joint 4043024780318 00 Active 2021 Not Available [facility] 3 00:29:32 Pain of right knee joint 3391019340291 00 Active 2023 FLOR Pierson [address] [facility], [facility] [address], [place], [address] , [facility] 4 09:39:34 Problem Notes None recorded. Medical Equipment None Reported. [...] active Not Available Not Available Not Avai oly Novaunjaro 2.5 mg/0.5 mL subcutaneou s pen injector active Not Available Not Available Not Available Vitals Date Recorded Body height Body mass index (BMI) Body weight Provider Name and Address Organization Details Last Updated DateTime 05/20/2023 167.64 cm 32.3 kg/m2 33020.47 g Codi Sheridan [facility] 05/20/2023 09:08:29 Date Recorded Body mass index (BMI) Body height Body weight Provider Name and Address Organization Details Last Updated DateTime 06/15/2021 42 kg/m2 167.64 cm 084884.94 g Not Available [facility] 04/12/2022 00:29:07 Date Recorded Body height Body mass index (BMI) Body weight Provider Name and Address Organization Details Last Updated DateTime 06/27/2022 165.1 cm 37.8 kg/m2 612524.47 g Codi Sheridan [facility] 06/27/2022 08:47:29 Date Recorded Body mass index (BMI) Body height Body weight Provider Name and Address Organization Details Last Updated DateTime 09/01/2021 43.4 kg/m2 165.1 cm 702933.61 g Not Available [facility] 04/12/2022 00:29:07 Date Recorded Body height Provider Name an d Address Organization Details Last Updated DateTime 10/13/2021 165.1 cm Not Available [facility] 00:29:07 Social History None recorded. Functional Status Question Answer Note LastModified by Organizat ion Details LastModified Time What is your level of alcohol consumption? Occasional [id number] Information not available 04/12/2022 Mental Status None recorded. Family History Relationship Description Onset Age of this Age Resolved Age Notes LastModified by Organization Details LastModified Time Mother Hypertensive disorder [id number] Not available 04/12/2022 00:27:32 Mother Diabetes mellitus [id number] Not available 04/12/2022 00:27:32 Brother Diabetes mellitus [id number] Not available 04/12/2022 00:27:32 Mother Family history of malignant neoplasm [id number] Not available 2022 08:44:03 Sister Family history of malignant neoplasm [email or web address] Not available 2022 08:44:03 Medical History Condition Response URINARY/BLADDER/KIDNEY PROBLEMS Y Gynecological HistoryNo gynecological history recorded. Obstetrics History GPAL:G 0 P 0 0 0 0 Past Encounters Encounter ID Performer Location Encounter Start Date Encounter Closed Date Diagnosis/Indication Diagnosis SNOMED-CT Code Diagnosis ICD10 Code Diagnosis IMO Codes Diagnosis Note [id number] Diony Tirado MD [facility] [address] [facility] [address] [place] [address] 05/04/2021 00:00:00 05/04/2021 15:38:53 [id number] Diony Tirado MD [facility] [address] [place] [address] 06/15/2021 00:00:00 06/15/2021 11:14:56 [id number] Juan Manuel MD [facility] [address] [place] [address] 09/01/2021 00:00:00 10/10/2021 19:02:36 [id number] Juan Manuel MD [facility] [address] [place] [address] 10/13/2021 00:00:00 10/13/2021 09:28:22 [id number] Juan Manuel MD [facility] [address] [place] [address] 06/27/2022 08:28:56 06/27/2022 09:10:52 Osteoarthritis of right knee joint 9111449839 35734 M17.11 [id number] Agustín Bryant MD [facility] [place] [address] [place] [address] 05/20/2023 09:06:13 05/20/2023 11:47:31 Osteoarthritis of right knee joint 9715978701 52803 M17.11 Pain of ri ght knee joint 1229700432 25919 M25.561 Health Concerns Section Related Observation LastModified by Organization Detai ls LastModified Time None Recorded Concern Status LastModified by Organization Details LastModified Time None Recorded Advance Directives Directive None Recorded Payers Insurance Date Sequence Insurance Name Policy Number Policy Barrientos Covered Member ID Barrientos Member ID Guarantor Name 05/23/2023 1 [facility] [id number] Deyanira Mckeon [id number] Deyanira Mckeon Notes Date Note Type Note [...] been no significant change. FLOR Pierson [address] [facility], [place], [address], [facility] DNP [employer] 05/20/2023 09:40:13 OBGyn Episode No OBEpisode recorded.
== END ==
LOC: EXPBRAD 10:15
PROVIDERS: PCP Orthopaedic Surgery; Visit Provider Orthopaedic Surgery
DX: M25.551 Pain in right hip (principal); Z96.651 Presence of right artificial knee joint
CPT/HCPCS: 73502; 73562

== ENCOUNTER 2025-01-14 07:46 | Emergency (ER) | payer OTHER, SELFPAY ==
--- NOTE | ~2025-01-14 | XR_ITS ---
XR foot LT min 3V 01/14/2025 09:05 Indication: Left foot pain Procedure: 4 views left foot Comparison: 07/18/2017 Findings: There is mild osteoarthritis of the first metatarsal phalangeal joint. No fracture, subluxation or dislocation. There are degenerative calcaneal enthesophytes. Impression: 1: No acute bone or joint abnormality. Reviewed, dictated and finalized at location I. OR OF NURSE ANESTHESIA PRACTICE Impression: 1: No acute bone or joint abnormality.
--- NOTE | 2025-01-14 08:16 | ED.LOWEXIN ---
HPI - Extremity Injury (Lower) General Chief Complaint: Extremity Injury, Lower Stated Complaint: left foot injury Time Seen by Provider: 01/14/25 08:00 Source: patient, RN notes reviewed and old records reviewed Mode of arrival: ambulatory Limitations: no limitations History of Present Illness HPI Narrative: 59-year-old female presents to the [facility] with complaints of left foot. patient states that she stepped out of a car, went to step in a snowbank and her with foot rolled Inversely yesterday. Onset (ago): day(s) (1) Treatments prior to arrival: cold therapy, NSAIDS and other (walking boot) Related Data Home Medications ?Medication ?Instructions ?Recorded ?Confirmed ?Last Taken ?Type digestive enzym,plant-vksipk80 1 cap PO DAILY 04/22/24 01/12/25 06/30/24 History capsule vibegron 75 mg tablet (Gemtesa) 75 mg PO DAILY 05/14/24 01/12/25 06/30/24 History Allergies Allergy/AdvReac Type Severity Reaction Status Date / Time No Known Allergies Allergy Unknown Verified 01/14/25 08:55 Review of Systems Review of Systems: All systems reviewed & are unremarkable except as noted in HPI and below Constitutional: Constitutional: Reports no additional constitutional complaints Musculoskeletal: Musculoskeletal: Reports as per HPI Integumentary/Breasts: Skin/Breast: Reports system reviewed and no additional complaints, except as docu PMFSH Past Medical History Medical History Bilateral primary osteoarthritis of knee Obesity Prediabetes Sleep apnea Bipolar 1 disorder Bone spur of foot Osteoarthritis of spine Depression Surgical History Surgical History History of laparoscopic appendectomy 06/30/24 laparoscopic appendectomy with drainage of intra-abdominal abscess Dr. Atwood Status post total right knee replacement (~05/14/24) Custom H/O: hysterectomy Family History Family History Mother Diabetes mellitus Sibling Hypertension Diabetes mellitus Unknown Diabetes mellitus Family history of malignant neoplasm of ovary Social History Social History Smoking status: Never smoker Second hand tobacco smoke exposure: No Alcohol intake: never Alcohol use details: Wine 1 or 2 times a month Substance use: never Substance use type: does not use Lack of Transportation: No Lack of Food: Never True Current Housing: I Have Housing Concerned About Future Housing: No Difficulty Paying Gas/Electric Bills: No Difficulty Paying for Meds: No Currently Unemployed: No Education: High School Diploma/GED Difficulty w/ Childcare or Family Care: No Living arrangements: with friend(s) Occupation/Education: occupation Additional occupation/education comments: Patient Access Gender identity (if verbalized by the patient): Female Spiritual care concerns: No Agree to blood products: Yes Comments At the time of my signature, I reviewed and agree with the nursing past medical, surgical, social, and family history. There is no relevant family history pertinent to the patient complaint. Exam Const: General: cooperative, healthy appearing, comfortable, no acute distress, well developed, alert and well nourished Nutritional Appearance: well nourished Orientation/consciousness: patient oriented x3 Limitations: no limitations HENMT: Head: normal to inspection Eyes: General: appearance normal, both eyes and all related structures Alignment and Position: alignment normal Neck: Neck: normal visual inspection, full ROM, no lymphadenopathy and no meningeal signs Chest: Chest palpation & inspection: normal inspection of the chest Resp: Effort & Inspection: normal respiratory effort and able to speak in complete sentences Cardio: Rate: regular rate Skin: General skin exam: normal color and no rashes or lesions noted Neuro: General: patient oriented x3, moves all extremities and no meningeal signs Cognition (Neuro): normal cognition Speech: normal speech Extrem: General: normal to inspection, full ROM, capillary refill normal and normal gait Left lower extremity: full ROM, normal capillary refill and foot Details: tenderness Location: of the dorsal foot Location: laterally and of the lateral foot Location: distally and in the mid-section, toes with normal ROM, no edema and vascular exam Details: dorsalis pedis pulse present and normal capillary refill; no abrasions, no lacerations and no ecchymosis Psych: Appearance: grossly normal and well kempt Mental Status: mental status grossly normal Speech and movement: Normal speech and movement present and Clear speech present Affect: normal affect Attitude: cooperative Course Course Level of Care: Express Care Visit Vital Signs Vital signs: Vital Signs Temperature 97.8 F 01/14/25 09:20 Pulse Rate 67 01/14/25 09:20 Respiratory Rate 20 01/14/25 09:20 Blood Pressure 138/72 01/14/25 09:20 Pulse Oximetry 100 01/14/25 09:20 Oxygen Delivery Room Air 01/14/25 09:20 Temperature 97.8 F 01/14/25 09:20 Pulse Rate 67 01/14/25 09:20 Respiratory Rate 20 01/14/25 09:20 Blood Pressure 138/72 01/14/25 09:20 Pulse Oximetry 100 01/14/25 09:20 Oxygen Delivery Room Air 01/14/25 09:20 reviewed MDM MDM Narrative Medical decision making narrative: patient sitting in exam room. Patient is nontoxic, vitals stable. Patient presents with injury to the left foot pain to the lateral 4th and 5th metatarsals. X-ray shows no acute findings. Patient is appropriate for outpatient treatment with close follow-up Discharge instructions reviewed with patient, as well as provided in writing per nursing staff. The instructions also include specific and strict return/GO TO THE ER as well as f/u information. All questions have been answered, and the patient deny any further questions with discharge and discharge plan. Some parts of this dictation were generated by voice recognition software and may contain typographical and/or grammatical inaccuracies. Differential Diagnosis Differential Diagnosis: Differential diagnostic considerations for lower extremity injury include ankle sprain/strain, acute internal derangement of knee, fracture of femur, fracture of hip, puncture wound of foot, fracture of toe, fracture of ankle, tendon rupture (achilles/patellar/quadriceps). Imaging Data Radiologist's impression: ITS Impressions Foot X-Ray 01/14/25 09:08 Impression: 1: No acute bone or joint abnormality. XR foot LT min 3V 01/14/2025 09:05 Indication: Left foot pain Procedure: 4 views left foot Comparison: 07/18/2017 Findings: There is mild osteoarthritis of the first metatarsal phalangeal joint. No fracture, subluxation or dislocation. There are degenerative calcaneal enthesophytes. Impression: 1: No acute bone or joint abnormality. Critical Care Time Critical Care Time Critical Care Time: No Discharge Plan Discharge Clinical Impression: Acute pain of left foot Patient Disposition: Home Condition: Stable Instructions: Antibiotic Form, Foot Sprain (ED) Additional Instructions: Your Xray did not show a fracture. Wear good supportive shoes at all times. Ice should be applied to help reduce swelling. It can be used for 20 to 30 minutes, every 2-3 hours while awake. Do not apply ice directly to your skin. ankle braces or chava-wraps will help support your injured ankle. Take meloxicam as prescribed daily Please schedule a follow-up visit with your personal physician for further evaluation and treatment within 2 weeks especially if symptoms persist. follow-up with Podiatry For new or worsening symptoms go directly to the emergency room Patient Language: Jordanian Prescriptions: No Action lamotrigine 100 mg tablet 50 mg PO DAILY Qty: 90 3RF sertraline 100 mg tablet 50 mg PO DAILY Qty: 90 3RF digestive enzym,plant- Capsule 1 cap PO DAILY Gemtesa 75 mg tablet 75 mg PO DAILY oxybutynin chloride 15 mg tablet extended release 24hr 15 mg PO DAILY Qty: 90 3RF Follow-up/Referrals: Jose M Coleman Jr., DPM [Physician, Podiatry] Liyah Mcgee APRN [Primary Care Provider, [facility]] Time of Disposition: 09:25
[2025-01-14 09:20] VITALS: BP 138/72; PULSE 67; RESP 20; TEMP 36.6; O2SAT 100
== END 2025-01-14 09:25 | disposition home or self-care (01) ==
PROVIDERS: Emergency Provider Nurse Practitioner; PCP Nurse Practitioner Adult Health
DX: M79.672 Pain in left foot (principal)
CPT/HCPCS: 73630; 99213; G0463

== ENCOUNTER 2025-01-28 02:50 | Day surgery (SDC) | payer OTHER, SELFPAY ==
[2025-01-12 10:52] VITALS: BMI 36.6
--- OUTSIDE RECORDS SUMMARY | 2025-01-28 02:53 | XMS_ITS | Data Portability ---
Author Organization [place] [email or web address], Main Office Address [address] [place] [address] Care Team Providers Care [employer] Instructor Name Role Phone JERMAN ALICIA Primary Care Provider [phone] JERMAN ALICIA Referring Provider [phone] Assessment Encounter Date Assessment Date Assessment LastModified [...] in treatment patient more than half this uqub-kj-vhpx conversation Not available 06/27/2022 09:01:13 05/20/2023 05/20/2023 The patient has severe primary osteoarthritis of the right knee joint with bozl-fh-rewb changes in medial and patellofemoral compartments. We [...] procedure, administere d by provider 2023 024 [email or web address] In-Office Order, Internal Use Only DO Not Attach Compendium DO Not Attach Compendium, Do Not Delete/merge, [id number] 4 09:26:25 injection/a spiration joint/bursa (PROC) - in office procedure, administere d by provider 2022 023 [email or web address] In-Office Order, Internal Use Only DO Not Attach Compendium DO Not Attach Compendium, Do Not Delete/merge, [id number] 3 08:53:37 Surgeries None recorded. Imaging XR, knee 04/08/ 2024 04/08/2 024 [email or web address] [facility] [place], [address], [place], [address], 4 11:47:31 Medication Orders Kenalog 10 mg/mL suspension for injection [address] [id number], [address], [place], [place], [id number], 4 10:29:31 bupivacaine (PF) 0.25 % (2.5 mg/mL) injection solution [address] [id number], [address], [place], [place], [phone], 4 10:29:31 Kenalog 10 mg/mL suspension for injection [address] [id number], [address], [place], [place], [id number], 3 10:30:52 ropivacaine (PF) 5 mg/mL (0.5 %) injection solution [address] [id number], [address], [place], [place], [id number], 3 10:30:52 Patient TargetsNo targets recorded. Patient InstructionsNo instructions recorded. Reason for Referral None Reported. Results Created Date Observation Date Name Description Value Unit Range Abnormal Flag Note LastModifiedBy Organization Detail LastModifiedTime 09/02/19 22 09/01/2021 XR, knee No observ ation record ed. [id number] [facility] [place] [address], [place], [address], 04/12/2022 00:31:16 05/20/19 24 XR, knee No observ ation record ed. [email or web address] [facility] [place] [address], [place], [address], 05/20/2023 09:39:25 06/29/19 25 06/27/2024 imagi ng inter preta tion No observ ation record ed. [email or web address] [facility] [address], [place], [address], 11/26/2024 12:40:18 Result Notes None recorded. Problems Name Problem SNOMED Code Status Onset Date Resolution Date Notes Provider Name and Address Organization Details Recorded Time Bilateral osteoarthr itis of knees 6508843963839 07 Active 2021 Not Available [facility] 3 00:29:31 Osteoarthr itis 205881539 Active 2021 Not Available [facility] 3 00:29:32 Osteoarthr itis of right knee joint 3592964629330 00 Active 2021 Not Available [facility] 3 00:29:32 Pain of right knee joint 8222111955441 00 Active 2023 FLOR Pierson [address] [facility], [facility] [address], [place], [address] , [facility] 4 09:39:34 Problem Notes None recorded. Medical [...] Updated DateTime 05/20/2023 167.64 cm 32.3 kg/m2 40214.47 g Codi Sheridan [facility] 05/20/2023 09:08:29 Date Recorded Body mass index (BMI) Body height Body weight Provider Name and Address Organization Details Last Updated DateTime 06/15/2021 42 kg/m2 167.64 cm 500092.94 g Not Available Pending sale to [facility] 04/12/2022 00:29:07 Date Recorded Body height Body mass index (BMI) Body weight Provider Name and Address Organization Details Last Updated DateTime 06/27/2022 165.1 cm 37.8 kg/m2 026355.47 g Codi Sheridan [facility] 06/27/2022 08:47:29 Date Recorded Body mass index (BMI) Body height Body weight Provider Name and Address Organization Details Last Updated DateTime 09/01/2021 43.4 kg/m2 165.1 cm 114657.61 g Not Available Pending sale to [facility] 04/12/2022 00:29:07 Date Recorded Body height Provider Name an d Address Organization Details Last Updated DateTime 10/13/2021 165.1 cm Not Available [facility] 00:29:07 Social History None recorded. Functional Status Question Answer Note LastModified by Organizat ion Details LastModified Time What is your level of alcohol consumption? Occasional [id number] Information not available 04/12/2022 Mental Status None recorded. Family History Relationship Description Onset Age of this Age Resolved Age Notes LastModified by Organization Details LastModified Time Mother Hypertensive disorder [id number] Not available 04/12/2022 00:27:32 Mother Diabetes mellitus [id number] Not available 04/12/2022 00:27:32 Brother Diabetes mellitus [id number] Not available 04/12/2022 00:27:32 Mother Family history of malignant neoplasm [email or web address] Not available 2022 08:44:03 Sister Family history of malignant neoplasm [email or web address] Not available 2022 08:44:03 Medical History Condition Response URINARY/BLADDER/KIDNEY PROBLEMS Y Gynecological HistoryNo gynecological history recorded. Obstetrics History GPAL:G 0 P 0 0 0 0 Past Encounters Encounter ID Performer Location Encounter Start Date Encounter Closed Date Diagnosis/Indication Diagnosis SNOMED-CT Code Diagnosis ICD10 Code Diagnosis IMO Codes Diagnosis Note [id number] Diony Tirado MD [facility] [place] [address] [place] [address] 05/04/2021 00:00:00 05/04/2021 15:38:53 [id number] Diony Tirado MD [facility] [place] [address] [place] [address] 06/15/2021 00:00:00 06/15/2021 11:14:56 [id number] Juan Manuel MD [facility] [place] [address] [place] [address] 09/01/2021 00:00:00 10/10/2021 19:02:36 [id number] Juan Manuel MD [facility] [place] [address] [place] [address] 10/13/2021 00:00:00 10/13/2021 09:28:22 [id number] Juan Manuel MD [facility] [place] [address] [place] [address] 06/27/2022 08:28:56 06/27/2022 09:10:52 Osteoarthritis of right knee joint 5104514442 13181 M17.11 [id number] Agustín Bryant MD [facility] [place] [address] [place] [address] 05/20/2023 09:06:13 05/20/2023 11:47:31 Osteoarthritis of right knee joint 6037314666 89382 M17.11 Pain of ri ght knee joint 4257565177 55126 M25.561 Health Concerns Section Related Observation LastModified by Organization Detai ls LastModified Time None Recorded Concern Status LastModified by Organization Details LastModified Time None Recorded Advance Directives Directive None Recorded Payers Insurance Date Sequence Insurance Name Policy Number Policy Barrientos Covered Member ID Barrientos Member ID Guarantor Name 05/23/2023 1 [facility] [id number] Deyanira Mckeon [id number] Deyanira Mckeon Notes Date Note Type Note [...] been no significant change. FLOR Pierson [address] [facility], [place], [address], [facility] [employer] 05/20/2023 09:40:13 OBGyn Episode No OBEpisode recorded.
[2025-01-28 07:43] VITALS: BP 138/82; PULSE 72; RESP 18; TEMP 36.4; O2SAT 96; BMI 38.5
[2025-01-28] MEDS: LACTATED RINGERS 1,000 ML 150 ML IV CONT (07:50)
--- NOTE | 2025-01-28 08:07 | P.PNAN_ITS ---
Anes - Initial Pre Proc Eval Procedure: Operation Date: 01/28/25 09:00 Proposed Procedures p Screening Colonoscopy - Rehan Ortez MD Date/Time: 01/28/25 08:07 Surgeon: Rehan Ortez MD Pre Op Diagnosis: Encounter for screening for malignant neoplasm of Patient Data Age: 59 Gender: F Height: 1.65 m Weight: 105.1 kg Last Vital Signs Temp 97.6 F 01/28/25 07:43 Pulse 72 01/28/25 07:43 Resp 18 01/28/25 07:43 BP 138/82 01/28/25 07:43 Pulse Ox 96 01/28/25 07:43 O2 Del Method Room Air 01/28/25 07:43 Allergies Allergy/AdvReac Type Severity Reaction Status Date / Time No Known Allergies Allergy Unknown Verified 01/28/25 07:42 Home Medications ?Medication ?Instructions ?Recorded ?Confirmed ?Type lamotrigine 100 mg tablet 50 mg (1/2 x 100 mg) PO JESICA Y #90 09/23/23 01/28/25 Rx tabs sertraline 100 mg tablet 50 mg (1/2 x 100 mg) PO JESICA Y #90 09/23/23 01/28/25 Rx tabs digestive enzym,plant-jceoye20 1 cap PO DAILY 04/22/24 01/28/25 History capsule vibegron 75 mg tablet (Gemtesa) 75 mg PO DAILY 5 01/28/25 History oxybutynin chloride 15 mg 15 mg PO DAILY #90 tabs 11/0 05/0501/28/25 Rx tablet,extended release 24 hr Patient hx anesthesia problems: none Family hx anesthesia problems: none Results Review: All pre-operative results and documents have been reviewed as part of the pre- operative evaluation. [facility] Past Medical History Medical History Bilateral primary osteoarthritis of knee Obesity Prediabetes Sleep apnea Bipolar 1 disorder Bone spur of foot Osteoarthritis of spine Depression Surgical History Surgical History History of laparoscopic appendectomy 06/30/24 laparoscopic appendectomy with drainage of intra-abdominal abscess Dr. Atwood Status post total right knee replacement (~05/14/24) Custom H/O: hysterectomy Family History Family History Mother Diabetes mellitus Sibling Hypertension Diabetes mellitus Unknown Diabetes mellitus Family history of malignant neoplasm of ovary Social History Social History Smoking status: Never smoker Second hand tobacco smoke exposure: No Alcohol intake: never Alcohol use details: Wine 1 or 2 times a month Substance use: never Substance use type: does not use Lack of Transportation: No Lack of Food: Never True Current Housing: I Have Housing Concerned About Future Housing: No Difficulty Paying Gas/Electric Bills: No Difficulty Paying for Meds: No Currently Unemployed: No Education: High School Diploma/GED Difficulty w/ Childcare or Family Care: No Living arrangements: with roommate(s) Occupation/Education: occupation Additional occupation/education comments: Patient Access Gender identity (if verbalized by the patient): Female Spiritual care concerns: No Agree to blood products: Yes Anes - Eval Final PreProcedure Day of Procedure 01/28/25 08:07 Patient weight: obese Lungs: normal air movement Airway: Mallampati scale class II and special considerations (R upper tooth missing. ) Neurological: alert and oriented Last oral intake: >/= 8 hours ASA classification: III Emergent: no Anesthetic plan: proceed Anesthesia type and monitoring: general GIVS and standard monitoring Results Review: All pre-operative results and documents have been reviewed as part of the pre-operative evaluation. BMI 38, pre DM, bipolar by hx, active w 1-2 fos, no cp or sob. Informed Consent: The patient's anesthetic plan and its attendant risks and benefits were discussed with the patient/family/POA. Questions were solicited and answers provided to the satisfaction of the patient/family/POA.
--- NOTE | 2025-01-28 08:39 | PM.HPGS ---
History of Present Illness History of Present Illness Consent: Risks, benefits, and alternatives have been discussed and questions answered. Patient agrees to proceed with procedure. Chief complaint: Encounter for screening for malignant neoplasm of Narrative: Deyanira Mckeon is a 59 year old female with colon polyp in 2020 Review of Systems Review of Systems: All systems reviewed & are unremarkable except as noted in HPI and below PMFSH Past Medical History Medical History (Updated 01/28/25 @ 08:39 by Rehan Ortez MD) Polyp, colonic Bilateral primary osteoarthritis of knee Obesity Prediabetes Sleep apnea Bipolar 1 disorder Bone spur of foot Osteoarthritis of spine Depression Surgical History Surgical History History of laparoscopic appendectomy 06/30/24 laparoscopic appendectomy with drainage of intra-abdominal abscess Dr. Atwood Status post total right knee replacement (~05/14/24) Custom H/O: hysterectomy Family History Family History Mother Diabetes mellitus Sibling Hypertension Diabetes mellitus Unknown Diabetes mellitus Family history of malignant neoplasm of ovary Social History Social History Smoking status: Never smoker Second hand tobacco smoke exposure: No Alcohol intake: never Alcohol use details: Wine 1 or 2 times a month Substance use: never Substance use type: does not use Lack of Transportation: No Lack of Food: Never True Current Housing: I Have Housing Concerned About Future Housing: No Difficulty Paying Gas/Electric Bills: No Difficulty Paying for Meds: No Currently Unemployed: No Education: High School Diploma/GED Difficulty w/ Childcare or Family Care: No Living arrangements: with roommate(s) Occupation/Education: occupation Additional occupation/education comments: Patient Access Gender identity (if verbalized by the patient): Female Spiritual care concerns: No Agree to blood products: Yes Meds Home Medications and Allergies Home Medications ?Medication ?Instructions ?Recorded ?Confirmed ?Type lamotrigine 100 mg tablet 50 mg (1/2 x 100 mg) PO DAILY #90 09/23/23 01/28/25 Rx tabs sertraline 100 mg tablet 50 mg (1/2 x 100 mg) PO DAILY #90 09/23/23 01/28/25 Rx tabs digestive enzym,plant-[id number] 1 cap PO DAILY 04/22/24 01/28/25 History capsule vibegron 75 mg tablet (Gemtesa) 75 mg PO DAILY 05/14/24 01/28/25 History oxybutynin chloride 15 mg 15 mg PO DAILY #90 tabs 12/14/24 01/28/25 Rx tablet,extended release 24 hr Allergies Allergy/AdvReac Type Severity Reaction Status Date / Time No Known Allergies Allergy Unknown Verified 01/28/25 07:42 Vital Signs Vital Signs - 24 hr 01/28/25 07:43 Temperature 97.6 F Pulse Rate 72 Respiratory Rate 18 Blood Pressure 138/82 Pulse Oximetry 96 Oxygen Delivery Room Air Exam Const: General: comfortable and no acute distress HENMT: Face/Nose/Sinus: Normal nares present Eyes: General: appearance normal, both eyes and all related structures Neck: Neck: no JVD Resp: Auscultation: clear to auscultation bilaterally Cardio: Rate: regular rate Rhythm: regular rhythm GI: Inspection: non-distended GI Palp: Yes Soft to palpation Skin: General skin exam: normal color Psych: Mental Status: mental status grossly normal Assessment and Plan Assessment and plan (1) Polyp, colonic: Code(s): K63.5 - Polyp of colon Status: Acute Assessment and Plan: colonoscopy
--- NOTE | 2025-01-28 08:57 | S_PTH ---
PATIENT: Deyanira Mckeon LOC: [facility]#:[id number] AGE/SX: 59/F ROOM: RE01/28/[address]: Rehan Ortez MD : 1965 BED: DIS: 01/28/2025 SPEC #: [id number] RECD: 01/28/25 10:56 STATUS: MOISE REJimmy #: [id number] JEFE: 01/28/25 08:[address]: Rehan Ortez DEPT: [facility] Surgical RECD BY: Acacia Castellon ENTERED: 01/28/25 10:57 SP TYPE: Surgical OTHR DR: Liyah Mcgee APRN Tissues: A - Colon Polypectomy B - Colon Polypectomy Procedures: Hematoxylin and Eosin Stain Gross and Microscopic Level 4
[2025-01-28 09:01] VITALS: BP 116/68; PULSE 65; RESP 26; O2SAT 99
[2025-01-28 09:11] VITALS: BP 124/81; PULSE 65; RESP 24; O2SAT 95
[2025-01-28 09:21] VITALS: BP 124/75; PULSE 66; RESP 22; O2SAT 99
== END 2025-01-28 09:26 | disposition home or self-care (01) ==
PROVIDERS: PCP Nurse Practitioner Adult Health; Referring Provider Nurse Practitioner Adult Health; Visit Provider Internal Medicine Gastroenterology
PROC: 0DJD8ZZ Inspection of Lower Intestinal Tract, Via Natural or Artificial Opening Endoscopic (ICD-10-PCS; CPT 45378; principal; 2025-01-28 09:00)
DX: Z12.11 Encounter for screening for malignant neoplasm of colon (principal); K63.5 Polyp of colon; K64.8 Other hemorrhoids; K57.30 Diverticulosis of large intestine without perforation or abscess without bleeding; R73.03 Prediabetes; M17.0 Bilateral primary osteoarthritis of knee; G47.30 Sleep apnea, unspecified; F32.A Depression, unspecified; M47.9 Spondylosis, unspecified; E66.9 Obesity, unspecified; Z68.38 Body mass index [BMI] 38.0-38.9, adult; Z98.890 Other specified postprocedural states; Z80.41 Family history of malignant neoplasm of ovary
CPT/HCPCS: 45385; 88305; J2003; J2704; J7120